=== PATIENT | female | born 1965 | race Caucasian/White ===

== ENCOUNTER 2016-09-16 13:53 | Inpatient (IN) | payer MEDICAID ==
--- NOTE | 2016-09-16 14:49 | ED ---
General Adult HPI - General Source: patient, RN notes reviewed Mode of arrival: ambulatory Limitations: no limitations <Steph Dickson - Last Filed: 09/16/16 16:21> <Gregory Dietrich - Last Filed: 09/16/16 16:33> - General Chief complaint: Fall Stated complaint: Fall/Left Flank Pain Time Seen by Provider: 09/16/16 14:43 - History of Present Illness Initial comments: 51-year-old female presents to the emergency Department chief complaint of left- sided chest pain. Patient states that this pain started yesterday after she fell hitting the left side of her ribs. Patient states there is a take a deep breath it hurts to cough. Patient states that she hasn't had any fever chills there is no head injury. Patient denies any other complaints at this time. Patient was concerned due to her symptoms so she thought that she should be evaluated. Patient denies any recent fever, chills, shortness of breath, chest pain, back pain, abdominal pain, nausea vomiting, numbness or tingling, dysuria or hematuria, constipation or diarrhea, headaches or visual changes, or any other current symptoms. (Steph Dickson) - Related Data Home Medications Medication Instructions Recorded Confirmed Latanoprost Ophth [Xalatan 0.005%] 1 drops BOTH EYES HS 09/16/16 09/16/16 Timolol 0.5% Ophth Soln [Timoptic 1 drop BOTH EYES DAILY 09/16/16 09/16/16 0.5% Ophth Soln] Allergies Allergy/AdvReac Type Severity Reaction Status Date / Time metronidazole [From Flagyl] Allergy Rash/Hives Verified 09/16/16 14:08 Review of Systems ROS Other: All systems not noted in ROS Statement are negative. <Steph Dickson - Last Filed: 09/16/16 16:21> ROS Other: All systems not noted in ROS Statement are negative. <Gregory Dietrich - Last Filed: 09/16/16 16:33> ROS Statement: Those systems with pertinent positive or pertinent negative responses have been documented in the HPI. Past Medical History Past Medical History: No Reported History History of Any Multi-Drug Resistant Organisms: None Reported Past Surgical History: No Surgical Hx Reported Past Psychological History: No Psychological Hx Reported Smoking Status: Current every day smoker Past Alcohol Use History: Occasional Past Drug Use History: None Reported <Steph Dickson - Last Filed: 09/16/16 16:21> General Exam Limitations: no limitations <Steph Dickson - Last Filed: 09/16/16 16:21> General appearance: alert, anxious, in distress Head exam: Present: atraumatic, normocephalic, normal inspection Eye exam: Present: normal appearance, PERRL, EOMI. Absent: scleral icterus, conjunctival injection, periorbital swelling ENT exam: Present: normal exam, mucous membranes moist Neck exam: Present: normal inspection. Absent: tenderness, meningismus, lymphadenopathy Respiratory exam: Present: normal lung sounds bilaterally. Absent: respiratory distress, wheezes, rales, rhonchi, stridor Cardiovascular Exam: Present: normal rhythm, tachycardia, normal heart sounds. Absent: systolic murmur, diastolic murmur, rubs, gallop, clicks GI/Abdominal exam: Present: soft, normal bowel sounds. Absent: distended, tenderness, guarding, rebound, rigid Extremities exam: Present: normal inspection, full ROM, normal capillary refill. Absent: tenderness, pedal edema, joint swelling, calf tenderness Back exam: Present: normal inspection Neurological exam: Present: alert, oriented X3, CN II-XII intact Psychiatric exam: Present: normal affect, normal mood Skin exam: Present: warm, dry, intact, normal color. Absent: rash <Gregory Dietrich - Last Filed: 09/16/16 16:33> - General Exam Comments Initial Comments: General: The patient is awake and alert, in no distress, and does not appear acutely ill. Eye: Pupils are equal, round and reactive to light, extra-ocular movements are intact; there is normal conjunctiva bilaterally. No signs of icterus. Ears, nose, mouth and throat: There are moist mucous membranes and no oral lesions. Neck: The neck is supple, there is no tenderness Cardiovascular: There is a regular rate and rhythm. No murmur, rub or gallop is appreciated. Tenderness over the left lateral chest wall Respiratory: Lungs are clear to auscultation, respirations are non-labored, breath sounds are equal. No wheezes, stridor, rales, or rhonchi. Gastrointestinal: Soft, non-distended, non-tender abdomen without masses or organomegaly noted. There is no rebound or guarding present. No CVA tenderness. Bowel sounds are unremarkable. Back: There is no tenderness to palpation in the midline. There is no obvious deformity. No rashes noted. Musculoskeletal: Normal ROM, no tenderness, There is no pedal edema. There is no calf tenderness or swelling. Sensation intact. Pulses equal bilaterally 2+. Neurological: CN II-XII intact, There are no obvious motor or sensory deficits. Coordination appears grossly intact. Speech is normal. Skin: Skin is warm and dry and no rashes or lesions are noted. Psychiatric: Cooperative, appropriate mood & affect, normal judgment. (Steph Dickson) Course <Steph Dickson - Last Filed: 09/16/16 16:21> <Gregory Dietrich - Last Filed: 09/16/16 16:33> Vital Signs 09/16/16 09/16/16 14:06 16:12 Temperature 98.6 F Pulse Rate 123 H 107 H Respiratory 18 18 Rate Blood Pressure 127/74 O2 Sat by Pulse 96 Oximetry - Reevaluation(s) Reevaluation #1: 09/16/16 16:33 good breathing with thoravent placement (Gregory Dietrich) Procedures - Chest Tube Insertion Consent Obtained: verbal consent Time Out Performed: Yes Side of Procedure: left Indication: Pneumothorax Placed on monitor/pulse oximetry: Yes Site Prep: Chloroprep Local Anesthesia: Lidocaine 1%, With Epi Insertion Site: Midaxillary, Other (2nd) Tube Size (Mohawk): Other (10) Returns: Air Sutured in Place: No (bandage) Dressing Applied: Tape Attached to Suction: Yes Type of Suction: Pleuravac Repeat X-ray Results: Lung Inflated Patient Tolerated Procedure: well Complications: Pain <Gregory Dietrich - Last Filed: 09/16/16 16:33> Medical Decision Making - Radiology Data Radiology results: report reviewed, image reviewed <Steph Dickson - Last Filed: 09/16/16 16:21> - Lab Data Result diagrams: 09/16/16 16:06 <Gregory Dietrich - Last Filed: 09/16/16 16:33> - Medical Decision Making 51-year-old female presents for left-sided rib pain after fall. Imaging was reviewed that does show a pneumothorax. This time Dr. Dietrich placed a thoravac. At this time there was successful placement. This and the patient will be admitted to Dr. Betsy Calhoun will be consult at. Patient this plan. (Steph Dickson) - Lab Data Lab Results 09/16/16 Range/Units 16:06 WBC 8.7 (3.8-10.6) k/uL RBC 4.02 (3.80-5.40) m/uL Hgb 13.5 (11.4-16.0) gm/dL Hct 39.9 (34.0-46.0) % MCV 99.1 (80.0-100.0) fL MCH 33.5 (25.0-35.0) pg MCHC 33.8 (31.0-37.0) g/dL RDW 13.4 (11.5-15.5) % Plt Count 215 (150-450) k/uL Neutrophils % 80 % Lymphocytes % 12 % Monocytes % 6 % Eosinophils % 0 % Basophils % 0 % Neutrophils # 6.9 (1.3-7.7) k/uL Lymphocytes # 1.1 (1.0-4.8) k/uL Monocytes # 0.5 (0-1.0) k/uL Eosinophils # 0.0 (0-0.7) k/uL Basophils # 0.0 (0-0.2) k/uL Critical Care Time Critical Care Time: Yes Total Critical Care Time: 31 <Gregory Dietrich - Last Filed: 09/16/16 16:33> Disposition Time of Disposition: 16:22 Decision Date: 09/16/16 Decision Time: 16:22 <Steph Dickson - Last Filed: 09/16/16 16:21> <Gregory Dietrich - Last Filed: 09/16/16 16:33> Clinical Impression: Fall, Contusion of rib on left side, Acute pneumothorax Disposition: ADMITTED IP TO THIS [facility] Condition: Stable Referrals: None,Stated [Primary Care Provider] - 1-2 days
--- NOTE | 2016-09-16 15:04 | XR ---
EXAMINATION TYPE: XR ribs LT w pa chest x-ray , 5 VIEWS DATE OF EXAM ORDERED: 09/16/2016 HISTORY: Pain. COMPARISON: None. FINDINGS: There is blunting of the left CP angle. I could not exclude a left effusion. There is a 20-25% by volume left sided apical pneumothorax. The lungs are clear. Heart size is upper limits of normal. No displaced rib fracture is seen. IMPRESSION: 1. 25% BY VOLUME, LEFT SIDED APICAL PNEUMOTHORAX. 2. SMALL LEFT-SIDED EFFUSION. 3. I DO NOT IDENTIFY A DISPLACED RIB FRACTURE.
[2016-09-16] MEDS ORDERED: HYDROmorphone 1 MG/ML 1 ML SYRINGE IVP STA ×2 (15:09→15:35)
[2016-09-16] MEDS ORDERED: IPRATROPIUM-ALBUTEROL 3 ML NEB INHALATION STA (15:34)
[2016-09-16] MEDS ORDERED: SODIUM CHLORIDE 0.9% 1,000 ML IV STA (15:36)
--- NOTE | 2016-09-16 16:09 | XR ---
EXAMINATION TYPE: XR chest 1V portable DATE OF EXAM: 09/16/2016 HISTORY: Pain. REFERENCE: Previous study of earlier today. FINDINGS: Again without is been placed in the right chest. There is near complete resolution of the p atient's left-sided pneumothorax. A tiny residual pneumothorax persists which is less than 10% by vol ume. There is a calcified granuloma in the right upper lobe. The lungs are otherwise clear. Pleural spaces are clear. Heart size is upper limits of normal. IMPRESSION: STATUS POST HEIMLICH VALVE REPLACEMENT WITH NEAR COMPLETE RESOLUTION OF THE PATIENT'S LEFT-SIDED PNEU MOTHORAX.
--- NOTE | 2016-09-16 16:19 | P.CNPUL ---
History of Present Illness Consult date: 09/16/16 Reason for consult: COPD, pneumothorax History of present illness: 1-year-old female patient, chronic smoker, known history of COPD, recurrent bronchitis, was having symptoms of bronchitis and some mild symptoms of COPD exacerbation over the past 2 days. She subsequently had a fall and her garage and she landed on her left chest and she developed significant left-sided chest pain increased shortness of breath. Overnight she decided not to come into the hospital. This morning her breathing was getting worse and she was having also increased congestions cough and wheezing. For that reason, the patient came into the emergency department and she was found to have a 15-20% pneumothorax in the left apex. No evidence of any rib fractures on the chest x-ray. She was quite bronchospastic and wheezy and short of breath and tachycardic. No signs of any tension pneumothorax and she was hemodynamically stable. Pulse ox was around 95% on room air. No hemoptysis. She was however a having excess amount of pain along her left chest at the site of the trauma. No chest wall deformity. I attended on this patient in the emergency department. Reviewed the chest x-ray. Discussed with Dr. Dietrich and we inserted a Thoravent with successful reexpansion of the left lung. Review of Systems All systems: negative Constitutional: Denies chills, Denies fever Eyes: denies blurred vision, denies pain Ears, nose, mouth and throat: Denies headache, Denies sore throat Cardiovascular: Reports chest pain, Reports decreased exercise tolerance, Reports shortness of breath Respiratory: Reports cough, Reports dyspnea, Reports respiratory infections, Reports wheezing Gastrointestinal: Denies abdominal pain, Denies diarrhea, Denies nausea, Denies vomiting Genitourinary: Denies dysuria, Denies hematuria Musculoskeletal: Denies myalgias Integumentary: Denies pruritus, Denies rash Neurological: Denies numbness, Denies weakness Psychiatric: Denies anxiety, Denies depression Endocrine: Denies fatigue, Denies weight change Past Medical History Past Medical History: No Reported History, COPD Additional Past Medical History / Comment(s): COPD, glaucoma History of Any Multi-Drug Resistant Organisms: None Reported Past Surgical History: No Surgical Hx Reported, Breast Surgery Additional Past Surgical History / Comment(s): Cosmetic bilateral breast implants Past Psychological History: No Psychological Hx Reported Smoking Status: Current every day smoker (Patient smokes one half pack of cigarettes a day and she is a [id number] smoker.) Past Alcohol Use History: Occasional Past Drug Use History: None Reported Medications and Allergies Home Medications Medication Instructions Recorded Confirmed Type Latanoprost Ophth [Xalatan 0.005%] 1 drops BOTH EYES HS 09/16/16 09/16/16 History Timolol 0.5% Ophth Soln [Timoptic 1 drop BOTH EYES DAILY 09/16/16 09/16/16 History 0.5% Ophth Soln] Allergies Allergy/AdvReac Type Severity Reaction Status Date / Time metronidazole [From Flagyl] Allergy Rash/Hives Verified 09/16/16 14:08 Physical Exam Vitals: Vital Signs Temp Pulse Resp BP Pulse Ox 09/16/16 14:06 98.6 F 123 H 18 127/74 96 Intake and Output 09/16/16 09/16/16 09/16/16 06:59 14:59 22:59 Other: Weight 63.503 kg Patient Weight 09/17/16 06:59 Weight 63.503 kg Head exam was generally normal. There was no scleral icterus or corneal arcus. Mucous membranes were moist.Neck was supple and without jugular venous distension, thyromegaly, or carotid bruits. Carotids were easily palpable bilaterally. There was no adenopathy. Lung sounds are diminished in the lung apex on the left compared to the right. There is scattered rhonchi and expiratory wheezes throughout the lung watknis bilaterally.Cardiac exam revealed the PMI to be normally situated and sized. The rhythm was regular and no extrasystoles were noted during several minutes of auscultation. The first and second heart sounds were normal and physiologic splitting of the second heart sound was noted. There were no murmurs, rubs, clicks, or gallops.Abdominal exam revealed normal bowel sounds. The abdomen was soft, non-tender, and without masses, organomegaly, or appreciable enlargement of the abdominal aorta.Examination of the extremities revealed easily palpable radial, femoral and pedal pulses. There was no cyanosis, clubbing or edema. Results - Diagnostic Findings Chest x-ray: image reviewed Assessment and Plan Plan: Assessment 1 traumatic left-sided pneumothorax 15-20% involving the left apex, status post successful insertion of a thoravent 2 left-sided chest wall pain, traumatic, rule out underlying pulmonary contusion 3 COPD exacerbation/symptoms of acute bronchitis 4 shortness of breath secondary to above 5 smoker 6 glaucoma Plan Start the patient on DuoNeb nebulized treatments around the clock. We'll put the patient on 40 mg of IV Solu Medrol every 6 hours. We'll put the patient a course of Zithromax 500 mg by mouth on a daily basis. Daily chest x-ray. Incentive spirometer. Dilaudid 0.5-1 mg every 4-6 hours for pain control. Subcu heparin for DVT prophylaxis. Nicotine patch. Smoking cessation counseling was done. We'll continue to follow. Blood work will be obtained.
[2016-09-16] MEDS ORDERED: NALOXONE 0.4 MG/ML 1 ML VIAL IV PRN (16:23)
[2016-09-16] MEDS ORDERED: ONDANSETRON 4 MG/2 ML VIAL IVP PRN (16:23)
[2016-09-16] MEDS ORDERED: HYDROmorphone 1 MG/ML 1 ML SYRINGE IV PRN (16:23)
[2016-09-16 16:29] LABS: Basophils % (A) 0 %; CH 33.1; CHCM 33.6; Eosinophils % (A) 0 %; HCT 39.9 % (34.0-46.0); HDW 2.22; HGB 13.5 gm/dL (11.4-16.0); Luc # (Auto) 0.12; Luc % (Auto) 1; Lymphocytes # (A) 1.1 k/uL (1.0-4.8); Lymphocytes % (A) 12 %; MCH 33.5 pg (25.0-35.0); MCHC 33.8 g/dL (31.0-37.0); MCV 99.1 fL (80.0-100.0); Mean Platelet Volume 7.7; Monocytes # (A) 0.5 k/uL (0-1.0); Monocytes % (A) 6 %; Neutrophils # (A) 6.9 k/uL (1.3-7.7); Neutrophils % (A) 80 %; RBC 4.02 m/uL (3.80-5.40); RDW 13.4 % (11.5-15.5); WBC 8.7 k/uL (3.8-10.6); WBC (Perox) 8.17
[2016-09-16] MEDS ORDERED: HYDROmorphone 1 MG/ML 1 ML SYRINGE IVP PRN (16:30)
[2016-09-16 16:33] LABS: ALT 39 U/L (9-52); AST 28 U/L (14-36); Alkaline Phosphatase 91 U/L (38-126); Anion Gap 9 mmol/L; Blood Urea Nitrogen 12 mg/dL (7-17); Calcium 9.2 mg/dL (8.4-10.2); Carbon Dioxide 27 mmol/L (22-30); Chloride 105 mmol/L (98-107); Glucose 98 mg/dL (74-99); Non-African American GFR(MDRD) >60 (>60 ml/min/1.73 sqM); Potassium 4.6 mmol/L (3.5-5.1); Sodium 141 mmol/L (137-145); Total Bilirubin 0.5 mg/dL (0.2-1.3); Total Protein 7.2 g/dL (6.3-8.2)
[2016-09-16 17:57] VITALS: BMI 23.3
[2016-09-16] MEDS: NICOTINE 21MG/24HR PATCH TRANSDERM SCH (18:10)
[2016-09-16] MEDS: SODIUM CHLORIDE 0.9% 1,000 ML IV SCH (18:10)
[2016-09-16] MEDS: methylPREDNISolone SOD SUCCI 40 MG/ML 1 ML VIAL IV SCH ×2 (18:14→22:55)
[2016-09-16] MEDS: AZITHROMYCIN 250 MG TAB PO SCH (18:14)
[2016-09-16] MEDS ORDERED: TEMAZEPAM 15 MG CAP PO PRN (18:42)
[2016-09-16] MEDS: HEPARIN SODIUM,PORCINE 5,000 UNIT/ML 1 ML VIAL SQ SCH (20:18)
[2016-09-16] MEDS: HYDROmorphone 1 MG/ML 1 ML SYRINGE IVP PRN (20:19)
[2016-09-16] MEDS: LATANOPROST 0.005% OPHTH DROPS 2.5 ML BTL BOTH EYES SCH (20:19)
[2016-09-16] MEDS: IPRATROPIUM-ALBUTEROL 3 ML NEB INHALATION SCH (20:42)
--- NOTE | 2016-09-16 21:07 | P.GSCN ---
History of Present Illness Consult date: 09/16/16 Reason for Consult: Left-sided pneumothorax status post fall History of present illness: This a 51-year-old female who is admitted to the hospital. Patient slipped in her garage yesterday. She states this floor was wet she slipped and struck a shelving unit in her garage. Dissected pain after the fall. She didn't feel well this morning and presented to the emergency room found have a 25% left pneumothorax. There are no evidence of rib fractures. Patient currently has a pneumo vent in place. Her pneumothorax has resolved. Review of Systems - Constitutional Reports as per HPI Past Medical History Past Medical History: No Reported History Additional Past Medical History / Comment(s): COPD, glaucoma History of Any Multi-Drug Resistant Organisms: None Reported Past Surgical History: No Surgical Hx Reported Additional Past Surgical History / Comment(s): Cosmetic bilateral breast implants Past Psychological History: No Psychological Hx Reported Smoking Status: Current every day smoker Past Alcohol Use History: Occasional Past Drug Use History: None Reported Medications and Allergies Home Medications Medication Instructions Recorded Confirmed Type Latanoprost Ophth [Xalatan 0.005%] 1 drops BOTH EYES HS 09/16/16 09/16/16 History Timolol 0.5% Ophth Soln [Timoptic 1 drop BOTH EYES DAILY 09/16/16 09/16/16 History 0.5% Ophth Soln] Allergies Allergy/AdvReac Type Severity Reaction Status Date / Time metronidazole [From Flagyl] Allergy Rash/Hives Verified 09/16/16 14:08 Surgical - Exam Vital Signs Temp Pulse Resp BP Pulse Ox 98.6 F 123 H 18 127/74 96 09/16/16 14:06 09/16/16 14:06 09/16/16 14:06 09/16/16 14:06 09/16/16 14:06 - General well developed, no distress - Eyes PERRL - ENT normal pinna - Neck no masses - Respiratory normal expansion - Cardiovascular Rhythm: regular - Abdomen Abdomen: soft, non tender Results - Labs 09/16/16 16:06 09/16/16 16:06 Diabetes panel 09/16/16 Range/Units 16:06 Sodium 141 (137-145) mmol/L Potassium 4.6 (3.5-5.1) mmol/L Chloride 105 (98-107) mmol/L Carbon Dioxide 27 (22-30) mmol/L BUN 12 (7-17) mg/dL Creatinine 0.75 (0.52-1.04) mg/dL Glucose 98 (74-99) mg/dL Calcium 9.2 (8.4-10.2) mg/dL AST 28 (14-36) U/L ALT 39 (9-52) U/L Alkaline Phosphatase 91 (38-126) U/L Total Protein 7.2 (6.3-8.2) g/dL Albumin 4.5 (3.5-5.0) g/dL Calcium panel 09/16/16 Range/Units 16:06 Calcium 9.2 (8.4-10.2) mg/dL Albumin 4.5 (3.5-5.0) g/dL Pituitary panel 09/16/16 Range/Units 16:06 Sodium 141 (137-145) mmol/L Potassium 4.6 (3.5-5.1) mmol/L Chloride 105 (98-107) mmol/L Carbon Dioxide 27 (22-30) mmol/L BUN 12 (7-17) mg/dL Creatinine 0.75 (0.52-1.04) mg/dL Glucose 98 (74-99) mg/dL Calcium 9.2 (8.4-10.2) mg/dL Adrenal panel 09/16/16 Range/Units 16:06 Sodium 141 (137-145) mmol/L Potassium 4.6 (3.5-5.1) mmol/L Chloride 105 (98-107) mmol/L Carbon Dioxide 27 (22-30) mmol/L BUN 12 (7-17) mg/dL Creatinine 0.75 (0.52-1.04) mg/dL Glucose 98 (74-99) mg/dL Calcium 9.2 (8.4-10.2) mg/dL Total Bilirubin 0.5 (0.2-1.3) mg/dL AST 28 (14-36) U/L ALT 39 (9-52) U/L Alkaline Phosphatase 91 (38-126) U/L Total Protein 7.2 (6.3-8.2) g/dL Albumin 4.5 (3.5-5.0) g/dL Assessment and Plan Plan: Status post left pneumothorax after fall. Patient is doing well. She'll have repeat x-rays perform the morning.
[2016-09-16] MEDS: HYDROcodone/APAP 5-325MG 1 EACH TAB PO PRN (22:56)
[2016-09-17] MEDS: HYDROmorphone 1 MG/ML 1 ML SYRINGE IVP PRN ×8 (00:36→23:32)
[2016-09-17] MEDS: methylPREDNISolone SOD SUCCI 40 MG/ML 1 ML VIAL IV SCH ×4 (05:14→23:32)
[2016-09-17] MEDS: HYDROcodone/APAP 5-325MG 1 EACH TAB PO PRN ×2 (05:14→21:35)
[2016-09-17] MEDS: SODIUM CHLORIDE 0.9% 1,000 ML IV SCH ×2 (05:14→16:04)
[2016-09-17] MEDS: PANTOPRAZOLE 40 MG TABLET PO SCH (06:42)
[2016-09-17] MEDS: IPRATROPIUM-ALBUTEROL 3 ML NEB INHALATION SCH ×4 (07:03→19:43)
[2016-09-17] MEDS: HEPARIN SODIUM,PORCINE 5,000 UNIT/ML 1 ML VIAL SQ SCH ×2 (07:33→21:35)
[2016-09-17] MEDS: TIMOLOL 0.5% OPHTH DROPS 5 ML BTL BOTH EYES SCH (07:33)
--- NOTE | 2016-09-17 08:47 | XR ---
EXAMINATION TYPE: XR chest 1V DATE OF EXAM: 09/17/2016 COMPARISON: Prior chest x-ray 09/16/2016 HISTORY: Pneumothorax TECHNIQUE: Single frontal view of the chest is obtained. FINDINGS: Left-sided thoracic pain is in place, small apical pneumothorax is present. Distal tip of the thoracic vent tubing courses caudally. No evident effusion. Retrocardiac density likely represent s basilar atelectasis. Correlate to exclude pneumonia. Heart size may be accentuated by rotation. The re are overlying cardiac leads. IMPRESSION: Small apical pneumothorax persists. Additional findings above.
--- NOTE | 2016-09-17 10:46 | HP ---
DATE OF ADMISSION: 09/16/16 CHIEF COMPLAINT: Left sided chest pain and shortness of breath. HISTORY OF PRESENT ILLNESS: This 57-year-old woman with a past medical history of multiple medical problems including COPD, glaucoma being followed by Dr. Calhoun in the outpatient setting apparently fell in the garage yesterday on the left side and the patient was complaining of pain and feeling of pain especially on deep breaths. The patient also had shortness of breath. The patient came to [facility] and was admitted to the hospital for further evaluation and treatment. Chest x-ray was done which showed rib x-ray was done and chest x-ray was done. Rib x-ray showed 24% pneumothorax, left sided small left sided pleural effusion and displaced fracture was not seen. The patient admitted to the hospital for further evaluation and treatment. There is no history of any fevers, rigors or chills. No history of any headache, loss of consciousness or seizures. valve was placed by Dr. Calhoun. Past medical history of COPD. History of glaucoma. Medications prior to admission are: Home medications are reviewed and include: 1. Timolol 5% ophthalmic solution. 2. Xalatan eye drops. ALLERGIES: FLAGYL. FAMILY HISTORY: No history of heart disease or strokes in the family. SOCIAL HISTORY: History of smoking. No history of alcohol intake. REVIEW OF SYSTEMS: HEENT: No diminished vision. No diminished hearing. Cardiovascular system: No angina or palpitations. Respiratory: As mentioned earlier. GI: Nausea or vomiting. : No dysuria. Nervous system: No numbness, weakness. Allergy/Immunology: No asthma or hayfever. Musculoskeletal: As mentioned earlier. Hematology/oncology: No history of anemia. Endocrine. No history of diabetes or hypothyroidism. Constitutional: As mentioned earlier. Dermatology: Negative. Rheumatology: Negative. Psychiatry: As mentioned earlier. PHYSICAL EXAMINATION: The patient is alert and oriented times three. Pulse 81. Blood pressure 108/87. Respiratory rate 16, temperature 98.2 degrees. Pulse ox 92% on 2 L. HEENT: Conjunctivae normal. NECK: No JVD. Cardiovascular: S1, S2 muffled. Respiratory: Breath sounds diminished at the bases. Scattered rhonchi and crackles. Abdomen is soft. Nontender. No mass palpable. Legs: No edema. No swelling. Nervous system: No focal deficits. SKIN: No ulcer, rash or bleeding. LABS: CBC within normal limits. ASSESSMENT: 1. Fall and left sided pneumothorax status post valve. 2. Left sided chest pain. 3. Chronic obstructive pulmonary disease. 4. Glaucoma. RECOMMENDATIONS AND DISCUSSION: In this 51 -year-old woman who presented with multiple complex medical issues, we will monitor the patient closely. Continue the current medications. Continue symptomatic treatment. Otherwise, at this time, I would recommend pain medications. Incentive spirometry. Closely follow with Dr. Calhoun. See orders for further details. Further recommendations to follow. MTDD
--- NOTE | 2016-09-17 12:08 | P.PN ---
Subjective 51-year-old female patient, chronic smoker, known history of COPD, recurrent bronchitis, was having symptoms of bronchitis and some mild symptoms of COPD exacerbation over the past 2 days. She subsequently had a fall and her garage and she landed on her left chest and she developed significant left-sided chest pain increased shortness of breath. Overnight she decided not to come into the hospital. This morning her breathing was getting worse and she was having also increased congestions cough and wheezing. For that reason, the patient came into the emergency department and she was found to have a 15-20% pneumothorax in the left apex. No evidence of any rib fractures on the chest x-ray. She was quite bronchospastic and wheezy and short of breath and tachycardic. No signs of any tension pneumothorax and she was hemodynamically stable. Pulse ox was around 95% on room air. No hemoptysis. She was however a having excess amount of pain along her left chest at the site of the trauma. No chest wall deformity. I attended on this patient in the emergency department. Reviewed the chest x-ray. Discussed with Dr. Dietrich and we inserted a Thoravent with successful reexpansion of the left lung. The patient is seen again today 09/17/2016 in follow-up on the selective care unit. She is awake and alert in no acute distress. She is breathing easier today as compared to yesterday. Her pain is well controlled. She is maintaining good O2 saturations in the mid 90s on room air. She's been afebrile. Hemodynamically stable. Her chest x-ray reveals a small apical pneumothorax on the left. There is no clear evidence of rib fractures however on auscultation posteriorly on the left chest there is cracking and friction noted. She does feel that in this area with a deep inhalation as well. She remains on bronchodilators, IV Solu-Medrol and empiric antibiotics in the form of azithromycin. Objective - Vital Signs Vital signs: Vital Signs Temp 97.4 F L 09/17/16 11:18 Pulse 84 09/17/16 11:25 Resp 16 09/17/16 11:21 BP 115/69 09/17/16 11:18 Pulse Ox 94 L 09/17/16 11:18 Intake & Output 09/16/16 09/17/16 09/17/16 18:59 06:59 18:59 Intake Total 930 125 Balance 930 125 Weight 63.503 kg Intake: IV 450 Sodium Chloride 0.9% 1, 450 000 ml @ 80 mls/hr IV . [id number] [facility] Rx#:[id number] Oral 480 125 Other: Voiding Method Toilet # Voids 1 - Exam Head exam was generally normal. There was no scleral icterus or corneal arcus. Mucous membranes were moist.Neck was supple and without jugular venous distension, thyromegaly, or carotid bruits. Carotids were easily palpable bilaterally. There was no adenopathy. Lung sounds are diminished in the lung apex on the left compared to the right. There is scattered rhonchi and expiratory wheezes throughout the lung watkins bilaterally.Cardiac exam revealed the PMI to be normally situated and sized. The rhythm was regular and no extrasystoles were noted during several minutes of auscultation. The first and second heart sounds were normal and physiologic splitting of the second heart sound was noted. There were no murmurs, rubs, clicks, or gallops.Abdominal exam revealed normal bowel sounds. The abdomen was soft, non-tender, and without masses, organomegaly, or appreciable enlargement of the abdominal aorta.Examination of the extremities revealed easily palpable radial, femoral and pedal pulses. There was no cyanosis, clubbing or edema. - Labs CBC & Chem 7: 09/16/16 16:06 09/16/16 16:06 Assessment and Plan Plan: Assessment: 1 traumatic left-sided pneumothorax 15-20% involving the left apex, status post successful insertion of a thoravent, small minimal apical thorax remains. 2 left-sided chest wall pain, traumatic, rule out underlying pulmonary contusion , suspect left posterior fractured rib. 3 COPD exacerbation/symptoms of acute bronchitis 4 shortness of breath secondary to above 5 smoker 6 glaucoma Plan: The patient was seen and evaluated by Dr. Calhoun. Her chest x-ray was reviewed. There is still a small apical pneumothorax noted on the left. Dura- Vent remains in place. We'll continue with her pain medications. We'll keep her another 24 hours. We'll continue treating her COPD exacerbation with bronchodilators, IV Solu-Medrol and antibiotics. We will increase her activity as tolerated. We'll offer a NicoDerm patch. She'll be educated regarding the incentive spirometer and cough and deep breathing exercises as tolerated. We' ll continue to follow.
--- NOTE | 2016-09-17 15:00 | PN ---
DATE OF SERVICE: 09/17/16 This 51-year-old woman was admitted with left sided pneumothorax is being closely monitored. No chest pain. No palpitations. No fever. PHYSICAL EXAMINATION: The patient is alert and oriented times three. Pulse 73. Blood pressure 115/69. Respiratory rate 16. Temperature 97.4. Pulse ox 94% on room air. HEENT: Conjunctivae normal. NECK: No JVD. Cardiovascular: S1, S2 muffled. Respiratory: Breath sounds diminished at the bases. A few scattered rhonchi and crackles. Abdomen soft. Nontender. Legs, no edema. No swelling. Nervous system: No focal deficits. Labs: CBC, BMP within normal limits. ASSESSMENT: 1. Fall and left sided pneumothorax status post Heimlich valve. 2. Left sided chest pain. 3. Chronic obstructive pulmonary disease. 4. Glaucoma. RECOMMENDATIONS AND DISCUSSION: Recommend to continue the current medications. Continue with monitoring and symptomatic treatment. Otherwise, closely follow with Dr. Calhoun. Pain medications. Follow-up x-rays. Further recommendations to follow. SANDRO
[2016-09-17] MEDS: NICOTINE 21MG/24HR PATCH TRANSDERM SCH (15:51)
[2016-09-17] MEDS: AZITHROMYCIN 250 MG TAB PO SCH (15:51)
--- NOTE | 2016-09-17 17:37 | P.PN ---
Progress Note - Text Resting comfortably in her bed. She has no complaints. She has some minimal chest pain on the left side. Her repeat chest x-ray shows a small apical pneumothorax. On exam her vitals are stable. Abdomen soft. Small residual apical pneumothorax. Patient will continue to have her thoracic vent in place. She'll be discharged home per pulmonary.
[2016-09-17] MEDS: LATANOPROST 0.005% OPHTH DROPS 2.5 ML BTL BOTH EYES SCH (21:35)
[2016-09-18] MEDS: methylPREDNISolone SOD SUCCI 40 MG/ML 1 ML VIAL IV SCH ×4 (05:02→23:53)
[2016-09-18] MEDS: HYDROmorphone 1 MG/ML 1 ML SYRINGE IVP PRN ×6 (05:02→22:02)
[2016-09-18] MEDS: SODIUM CHLORIDE 0.9% 1,000 ML IV SCH (06:37)
[2016-09-18] MEDS: HYDROcodone/APAP 5-325MG 1 EACH TAB PO PRN ×3 (06:38→23:53)
[2016-09-18] MEDS: PANTOPRAZOLE 40 MG TABLET PO SCH (06:38)
[2016-09-18] MEDS: IPRATROPIUM-ALBUTEROL 3 ML NEB INHALATION SCH ×4 (07:48→19:31)
--- NOTE | 2016-09-18 08:01 | XR ---
EXAMINATION TYPE: XR chest 1V DATE OF EXAM: 09/18/2016 HISTORY: ptx. REFERENCE: Previous study dated 09/17/2016. FINDINGS: There is a Heimlich valve in place on the left. No definite pneumothorax is seen. Heart siz e is upper limits of normal. There is a left-sided effusion. There is left basilar airspace disease. Overall aeration of the left lung may have improved slightly. IMPRESSION: 1. APPARENT RESOLUTION OF THE PATIENT'S LEFT APICAL PNEUMOTHORAX. 2. IMPROVED AERATION, LEFT LUNG BASE. 3. SMALL LEFT EFFUSION.
[2016-09-18] MEDS: TIMOLOL 0.5% OPHTH DROPS 5 ML BTL BOTH EYES SCH (09:30)
[2016-09-18] MEDS: HEPARIN SODIUM,PORCINE 5,000 UNIT/ML 1 ML VIAL SQ SCH ×2 (09:31→21:42)
[2016-09-18] MEDS ORDERED: DOCUSATE 100 MG CAP PO PRN (13:01)
[2016-09-18] MEDS ORDERED: RX INFO: IV CONTRAST WAS GIVEN 1 EACH MISC MISCELLANE PRN (13:01)
--- NOTE | 2016-09-18 14:03 | P.PN ---
Subjective 51-year-old female patient, chronic smoker, known history of COPD, recurrent bronchitis, was having symptoms of bronchitis and some mild symptoms of COPD exacerbation over the past 2 days. She subsequently had a fall and her garage and she landed on her left chest and she developed significant left-sided chest pain increased shortness of breath. Overnight she decided not to come into the hospital. This morning her breathing was getting worse and she was having also increased congestions cough and wheezing. For that reason, the patient came into the emergency department and she was found to have a 15-20% pneumothorax in the left apex. No evidence of any rib fractures on the chest x-ray. She was quite bronchospastic and wheezy and short of breath and tachycardic. No signs of any tension pneumothorax and she was hemodynamically stable. Pulse ox was around 95% on room air. No hemoptysis. She was however a having excess amount of pain along her left chest at the site of the trauma. No chest wall deformity. I attended on this patient in the emergency department. Reviewed the chest x-ray. Discussed with Dr. Dietrich and we inserted a Thoravent with successful reexpansion of the left lung. The patient is seen again today 09/17/2016 in follow-up on the selective care unit. She is awake and alert in no acute distress. She is breathing easier today as compared to yesterday. Her pain is well controlled. She is maintaining good O2 saturations in the mid 90s on room air. She's been afebrile. Hemodynamically stable. Her chest x-ray reveals a small apical pneumothorax on the left. There is no clear evidence of rib fractures however on auscultation posteriorly on the left chest there is cracking and friction noted. She does feel that in this area with a deep inhalation as well. She remains on bronchodilators, IV Solu-Medrol and empiric antibiotics in the form of azithromycin. On 09/18/2016, I'm seeing this patient in follow-up. She is still having significant amount of pain along the left chest wall area. There is a click that can be appreciated upon auscultation or generating from the left posterior chest area. I suspect there is a left fracture probably a few. The patient is still requiring a lot of IV Dilaudid for pain control. She has a congested cough. Unfortunately she is unable to bring up the sputum due to the ongoing pain that she's been experiencing. She is less short of breath compared to yesterday. The chest tube is still in place. The chest x-ray from today showed adequate patient of the lungs without evidence of any pneumothorax and there is improved aeration of the lungs bilaterally. The patient is pulling approximately 750 I incentive spirometer. She is still very much concerned and she is very much concerned about an underlying pneumonia in addition. She is on oral Zithromax for now. Objective - Vital Signs Vital signs: Vital Signs Temp 97.0 F L 09/18/16 12:00 Pulse 73 09/18/16 12:00 Resp 16 09/18/16 12:00 BP 125/79 09/18/16 12:00 Pulse Ox 98 09/18/16 12:00 Intake & Output 09/17/16 09/18/16 09/18/16 18:59 06:59 18:59 Intake Total 365 560 520 Balance 365 560 520 Weight 67.2 kg Intake: IV 560 240 Sodium Chloride 0.9% 1, 560 240 000 ml @ 80 mls/hr IV . [id number] [facility] Rx#:[id number] Oral 365 280 Other: Voiding Method Toilet Toilet # Voids 1 - Exam Head exam was generally normal. There was no scleral icterus or corneal arcus. Mucous membranes were moist.Neck was supple and without jugular venous distension, thyromegaly, or carotid bruits. Carotids were easily palpable bilaterally. There was no adenopathy. Lung sounds are diminished in the lung apex on the left compared to the right. There is scattered rhonchi and expiratory wheezes throughout the lung watkins bilaterally.Cardiac exam revealed the PMI to be normally situated and sized. The rhythm was regular and no extrasystoles were noted during several minutes of auscultation. The first and second heart sounds were normal and physiologic splitting of the second heart sound was noted. There were no murmurs, rubs, clicks, or gallops.Abdominal exam revealed normal bowel sounds. The abdomen was soft, non-tender, and without masses, organomegaly, or appreciable enlargement of the abdominal aorta.Examination of the extremities revealed easily palpable radial, femoral and pedal pulses. There was no cyanosis, clubbing or edema. - Labs CBC & Chem 7: 09/16/16 16:06 09/16/16 16:06 Assessment and Plan Plan: Assessment 1 traumatic left-sided pneumothorax 15-20% involving the left apex, status post successful insertion of a thoravent, the patient had a successful expansion of the left lung and the tube will be capped. 2 left-sided chest wall pain, traumatic, rule out underlying pulmonary contusion 3 COPD exacerbation/symptoms of acute bronchitis 4 shortness of breath secondary to above 5 smoker 6 glaucoma Plan Proceed with a CAT scan of the chest looking for any rib fracture or pulmonary contusion. We'll also evaluate the extent of emphysema by the computed tomography scan images. We will cap the thoravent. Will possibly remove the tube in a.m. Dilaudid for pain control. Incentive spirometer. Oral Zithromax. Bronchodilators. Systemic steroids. Nicotine patches. We'll follow. Patient is ambulating.
[2016-09-18] MEDS: ALPRAZolam 0.5 MG TAB PO PRN (14:20)
[2016-09-18 14:33] LABS: Basophils % (A) 0 %; CH 33.2; CHCM 33.2; Eosinophils % (A) 0 %; HCT 39.1 % (34.0-46.0); HDW 2.21; Luc # (Auto) 0.06; Luc % (Auto) 0; Lymphocytes # (A) 0.5 k/uL (1.0-4.8); Lymphocytes % (A) 3 %; MCH 33.3 pg (25.0-35.0); MCHC 33.2 g/dL (31.0-37.0); MCV 100.3 fL (80.0-100.0); Monocytes # (A) 0.5 k/uL (0-1.0); Monocytes % (A) 3 %; Neutrophils # (A) 13.6 k/uL (1.3-7.7); Neutrophils % (A) 93 %; RDW 13.3 % (11.5-15.5); WBC 14.7 k/uL (3.8-10.6)
[2016-09-18 14:44] LABS: ALT 33 U/L (9-52); AST 20 U/L (14-36); Alkaline Phosphatase 66 U/L (38-126); Anion Gap 9 mmol/L; Blood Urea Nitrogen 11 mg/dL (7-17); Calcium 9.5 mg/dL (8.4-10.2); Carbon Dioxide 27 mmol/L (22-30); Chloride 103 mmol/L (98-107); Glucose 99 mg/dL (74-99); Non-African American GFR(MDRD) >60 (>60 ml/min/1.73 sqM); Potassium 4.4 mmol/L (3.5-5.1); Sodium 139 mmol/L (137-145); Total Bilirubin 0.3 mg/dL (0.2-1.3); Total Protein 6.7 g/dL (6.3-8.2)
[2016-09-18] MEDS: guaiFENesin-DM 600/30MG 1 EACH TAB.ER.12H PO SCH ×2 (16:08→21:42)
--- NOTE | 2016-09-18 16:12 | CT ---
EXAMINATION TYPE: CT chest w con DATE OF EXAM: 09/18/2016 COMPARISON: NONE HISTORY: Pneumothorax and broken ribs. CT DLP: 276.1 mGycm Automated exposure control for dose reduction was used. CONTRAST: CT scan of the chest is performed with IV Contrast, patient injected with 90 mL of Omnipaque 300. FINDINGS: There are undisplaced fractures of the left seventh eighth and ninth ribs posteriorly. Ther e is a comminuted, mildly displaced fracture of the left sixth rib. There is a Heimlich valve in place on the left. There is no evidence of pneumothorax. There is subcut aneous emphysema over the anterior chest on the left. There are patchy groundglass opacities present bilaterally. This may represent pulmonary contusion is thinning of the age of the trauma. There is dense consolidation in the left lower lobe. There is evidence of old granulomatous disease within the lungs. There is atelectasis at both lung ba ses, greater on the left than the right containing punctate calcifications related to old granulomato us disease. There is no significant axillary, internal mammary, mediastinal or left hilar adenopathy. There is a 1.2 cm lymph node in the right hilum. There are bilateral breast implants in place. Visualized portions of the upper abdomen are unremarkable. There is minimal hypertrophic spondylosis within the spine. IMPRESSION: 1. Fractures of the left posterior sixth, seventh, eighth and ninth ribs. The sixth rib is displaced. 2. Patchy groundglass opacity present bilaterally. This may relate to pulmonary hemorrhage. Alveoliti s is also a possibility. 3. Evidence of old granulomatous disease.
[2016-09-18] MEDS: AZITHROMYCIN 250 MG TAB PO SCH (17:33)
[2016-09-18] MEDS: NICOTINE 21MG/24HR PATCH TRANSDERM SCH (17:33)
--- NOTE | 2016-09-18 17:43 | PN ---
DATE OF SERVICE: 09/18/2016 This 51-year-old woman was admitted pneumothorax is being closely monitored. Dr. Calhoun is recommending CT scan of the chest. No chest pain. No palpitations. No fever. On exam, alert and oriented x3. Pulse 73, blood pressure 125/79, respiratory rate 16, temperature 97 degrees. HEENT: Conjunctive normal. NECK: No jugular venous distention. CARDIOVASCULAR: S1, S2 muffled. RESPIRATORY SYSTEM: Breath sounds diminished at the bases. A few scattered rhonchi. ABDOMEN: Soft. NERVOUS SYSTEM: No focal deficit. Heimlich valve is present. LABS: WBC 14.7. ASSESSMENT: 1. Fall and left-sided pneumothorax, status post Heimlich valve. 2. Left-sided chest pain. 3. Chronic obstructive pulmonary disease. 4. Glaucoma. 5. Increased white count. RECOMMENDATIONS AND DISCUSSION: I recommend to continue current medications, continue with symptomatic treatment. Closely follow with Dr. Calhoun. CT scan. Incentive spirometry. Bronchodilators. Further recommendations to follow. [facility]
[2016-09-18] MEDS: LATANOPROST 0.005% OPHTH DROPS 2.5 ML BTL BOTH EYES SCH (21:42)
[2016-09-19] MEDS: HYDROmorphone 1 MG/ML 1 ML SYRINGE IVP PRN ×8 (01:02→23:15)
[2016-09-19] MEDS: methylPREDNISolone SOD SUCCI 40 MG/ML 1 ML VIAL IV SCH ×4 (07:00→23:15)
[2016-09-19] MEDS: PANTOPRAZOLE 40 MG TABLET PO SCH (07:03)
[2016-09-19] MEDS: guaiFENesin-DM 600/30MG 1 EACH TAB.ER.12H PO SCH ×2 (07:47→19:55)
[2016-09-19] MEDS: TIMOLOL 0.5% OPHTH DROPS 5 ML BTL BOTH EYES SCH (07:48)
[2016-09-19] MEDS: HEPARIN SODIUM,PORCINE 5,000 UNIT/ML 1 ML VIAL SQ SCH ×2 (07:49→19:56)
[2016-09-19] MEDS: HYDROcodone/APAP 5-325MG 1 EACH TAB PO PRN ×3 (07:57→19:55)
[2016-09-19] MEDS: IPRATROPIUM-ALBUTEROL 3 ML NEB INHALATION SCH ×4 (08:40→19:28)
--- NOTE | 2016-09-19 08:45 | XR ---
EXAMINATION TYPE: XR chest 1V DATE OF EXAM: 09/19/2016 COMPARISON: Prior chest x-ray and chest CT 09/18/2016 HISTORY: Chest tube TECHNIQUE: Single frontal view of the chest is obtained. FINDINGS: Findings are similar to prior exam. Thoracic vent is present with tubing coursing inferior ly. Some parenchymal density suspected in left upper lobe somewhat obscured by overlying dressing. No sizable pneumothorax. Retrocardiac density is present. IMPRESSION: Left lower lobe atelectasis, correlate to exclude pneumonia. No sizable pneumothorax wit h chest tube in place as described.
[2016-09-19] MEDS: DOCUSATE 100 MG CAP PO SCH ×2 (12:41→19:55)
[2016-09-19] MEDS: POLYETHYLENE GLYCOL 3350 17 GM POWD.PACK PO SCH (12:41)
--- NOTE | 2016-09-19 13:18 | P.PN ---
Subjective 51-year-old female patient, chronic smoker, known history of COPD, recurrent bronchitis, was having symptoms of bronchitis and some mild symptoms of COPD exacerbation over the past 2 days. She subsequently had a fall and her garage and she landed on her left chest and she developed significant left-sided chest pain increased shortness of breath. Overnight she decided not to come into the hospital. This morning her breathing was getting worse and she was having also increased congestions cough and wheezing. For that reason, the patient came into the emergency department and she was found to have a 15-20% pneumothorax in the left apex. No evidence of any rib fractures on the chest x-ray. She was quite bronchospastic and wheezy and short of breath and tachycardic. No signs of any tension pneumothorax and she was hemodynamically stable. Pulse ox was around 95% on room air. No hemoptysis. She was however a having excess amount of pain along her left chest at the site of the trauma. No chest wall deformity. I attended on this patient in the emergency department. Reviewed the chest x-ray. Discussed with Dr. Dietrich and we inserted a Thoravent with successful reexpansion of the left lung. The patient is seen again today 09/17/2016 in follow-up on the selective care unit. She is awake and alert in no acute distress. She is breathing easier today as compared to yesterday. Her pain is well controlled. She is maintaining good O2 saturations in the mid 90s on room air. She's been afebrile. Hemodynamically stable. Her chest x-ray reveals a small apical pneumothorax on the left. There is no clear evidence of rib fractures however on auscultation posteriorly on the left chest there is cracking and friction noted. She does feel that in this area with a deep inhalation as well. She remains on bronchodilators, IV Solu-Medrol and empiric antibiotics in the form of azithromycin. On 09/18/2016, I'm seeing this patient in follow-up. She is still having significant amount of pain along the left chest wall area. There is a click that can be appreciated upon auscultation or generating from the left posterior chest area. I suspect there is a left fracture probably a few. The patient is still requiring a lot of IV Dilaudid for pain control. She has a congested cough. Unfortunately she is unable to bring up the sputum due to the ongoing pain that she's been experiencing. She is less short of breath compared to yesterday. The chest tube is still in place. The chest x-ray from today showed adequate patient of the lungs without evidence of any pneumothorax and there is improved aeration of the lungs bilaterally. The patient is pulling approximately 750 I incentive spirometer. She is still very much concerned and she is very much concerned about an underlying pneumonia in addition. She is on oral Zithromax for now. The patient is seen again today 09/19/2016 in follow-up on the selective care unit. She is awake and alert in no acute distress. She states she is breathing easier today as compared to yesterday. Her pain is better controlled. She still has discomfort on deep inhalation. She is pulling approximately 1000 mls on the incentive spirometer. Her chest x-ray continues to show atelectatic changes in the left lung base. No significant pneumothorax. ThoraVent remains in place. She has been up ambulating in the hallway without distress. Maintaining taking good O2 saturations in the 90s on room air. Afebrile. Objective - Vital Signs Vital signs: Vital Signs Temp 98.0 F 09/19/16 11:56 Pulse 76 09/19/16 12:58 Resp 18 09/19/16 11:56 BP 122/80 09/19/16 11:56 Pulse Ox 93 L 09/19/16 11:56 Intake & Output 09/18/16 09/19/16 09/19/16 18:59 06:59 18:59 Intake Total 940 600 Balance 940 600 Weight 67.5 kg Intake: IV 480 Sodium Chloride 0.9% 1, 480 000 ml @ 80 mls/hr IV . [id number] [facility] Rx#:[id number] Oral 460 600 Other: Voiding Method Toilet Toilet Toilet # Voids 2 2 # Bowel Movements 0 - Exam Head exam was generally normal. There was no scleral icterus or corneal arcus. Mucous membranes were moist.Neck was supple and without jugular venous distension, thyromegaly, or carotid bruits. Carotids were easily palpable bilaterally. There was no adenopathy. Lung sounds are diminished in the lung apex on the left compared to the right. There is scattered rhonchi and expiratory wheezes throughout the lung watkins bilaterally.Cardiac exam revealed the PMI to be normally situated and sized. The rhythm was regular and no extrasystoles were noted during several minutes of auscultation. The first and second heart sounds were normal and physiologic splitting of the second heart sound was noted. There were no murmurs, rubs, clicks, or gallops.Abdominal exam revealed normal bowel sounds. The abdomen was soft, non-tender, and without masses, organomegaly, or appreciable enlargement of the abdominal aorta.Examination of the extremities revealed easily palpable radial, femoral and pedal pulses. There was no cyanosis, clubbing or edema. - Labs CBC & Chem 7: 09/18/16 14:07 09/18/16 14:07 Labs: Abnormal Lab Results - Last 24 Hours (Table) 09/18/16 Range/Units 14:07 WBC 14.7 H (3.8-10.6) k/uL MCV 100.3 H (80.0-100.0) fL Neutrophils # 13.6 H (1.3-7.7) k/uL Lymphocytes # 0.5 L (1.0-4.8) k/uL Assessment and Plan Plan: Assessment: 1 traumatic left-sided pneumothorax 15-20% involving the left apex, status post successful insertion of a thoravent, small minimal apical thorax remains. 2 left-sided chest wall pain, traumatic, rule out underlying pulmonary contusion , suspect left posterior fractured rib. 3 COPD exacerbation/symptoms of acute bronchitis 4 shortness of breath secondary to above 5 smoker 6 glaucoma Plan: The patient was seen and evaluated by Dr. Musa. Her chest x-ray was reviewed. No sizable pneumothorax. We'll remove the Thoravent today. We'll continue with her pain medications. We'll continue treating her COPD exacerbation with bronchodilators, IV Solu-Medrol and antibiotics. We will increase her activity as tolerated. We'll continue a NicoDerm patch. She is again educated regarding the importance of complete smoking cessation. She is encouraged regarding the incentive spirometer and cough and deep breathing exercises as tolerated. We'll continue to follow.
[2016-09-19] MEDS: NICOTINE 21MG/24HR PATCH TRANSDERM SCH (17:08)
[2016-09-19] MEDS: AZITHROMYCIN 250 MG TAB PO SCH (17:09)
[2016-09-19] MEDS: ACETYLCYSTEINE 800 MG/4 ML VIAL INHALATION SCH (19:28)
[2016-09-19] MEDS: LEVOFLOXACIN 750MG-D5W PMX 750 MG in DEXTROSE/WATER 1 150ML.BAG IVPB SCH (19:54)
[2016-09-19] MEDS: LATANOPROST 0.005% OPHTH DROPS 2.5 ML BTL BOTH EYES SCH (19:56)
[2016-09-19] MEDS: PIPERACILLIN-TAZOBACTAM 3.375 GM in DEXTROSE/WATER 1 50ML.BAG IVPB SCH ×2 (21:26→23:14)
[2016-09-20] MEDS: HYDROcodone/APAP 5-325MG 1 EACH TAB PO PRN ×5 (01:52→20:44)
[2016-09-20] MEDS: HYDROmorphone 1 MG/ML 1 ML SYRINGE IVP PRN ×8 (02:01→23:41)
[2016-09-20 06:31] LABS: Basophils % (A) 0 %; CH 33.2; CHCM 32.8; Eosinophils % (A) 0 %; HCT 39.5 % (34.0-46.0); HDW 2.18; HGB 12.9 gm/dL (11.4-16.0); Luc # (Auto) 0.14; Luc % (Auto) 1; Lymphocytes # (A) 0.8 k/uL (1.0-4.8); Lymphocytes % (A) 7 %; MCH 33.1 pg (25.0-35.0); MCHC 32.5 g/dL (31.0-37.0); MCV 101.8 fL (80.0-100.0); Macrocytosis Slight; Mean Platelet Volume 7.7; Monocytes # (A) 0.6 k/uL (0-1.0); Monocytes % (A) 5 %; Neutrophils # (A) 10.2 k/uL (1.3-7.7); Neutrophils % (A) 87 %; RBC 3.88 m/uL (3.80-5.40); RDW 13.3 % (11.5-15.5); WBC 11.8 k/uL (3.8-10.6); WBC (Perox) 11.86
[2016-09-20 06:53] LABS: Anion Gap 10 mmol/L; Blood Urea Nitrogen 15 mg/dL (7-17); Calcium 9.1 mg/dL (8.4-10.2); Carbon Dioxide 26 mmol/L (22-30); Chloride 101 mmol/L (98-107); Glucose 119 mg/dL (74-99); Non-African American GFR(MDRD) >60 (>60 ml/min/1.73 sqM); Potassium 4.8 mmol/L (3.5-5.1); Sodium 137 mmol/L (137-145)
[2016-09-20] MEDS: PANTOPRAZOLE 40 MG TABLET PO SCH (06:53)
[2016-09-20] MEDS: methylPREDNISolone SOD SUCCI 40 MG/ML 1 ML VIAL IV SCH ×4 (06:53→23:41)
[2016-09-20] MEDS: DOCUSATE 100 MG CAP PO SCH ×2 (08:04→19:49)
[2016-09-20] MEDS: POLYETHYLENE GLYCOL 3350 17 GM POWD.PACK PO SCH (08:04)
[2016-09-20] MEDS: PIPERACILLIN-TAZOBACTAM 3.375 GM in DEXTROSE/WATER 1 50ML.BAG IVPB SCH ×3 (08:04→23:40)
[2016-09-20] MEDS: HEPARIN SODIUM,PORCINE 5,000 UNIT/ML 1 ML VIAL SQ SCH ×2 (08:05→19:49)
[2016-09-20] MEDS: TIMOLOL 0.5% OPHTH DROPS 5 ML BTL BOTH EYES SCH (08:06)
[2016-09-20] MEDS: guaiFENesin-DM 600/30MG 1 EACH TAB.ER.12H PO SCH ×2 (08:06→19:49)
[2016-09-20] MEDS ORDERED: BISACODYL 10 MG SUPP RECTAL STA (08:08)
[2016-09-20] MEDS: IPRATROPIUM-ALBUTEROL 3 ML NEB INHALATION SCH ×4 (08:11→20:24)
[2016-09-20] MEDS: ACETYLCYSTEINE 800 MG/4 ML VIAL INHALATION SCH ×3 (08:12→20:25)
--- NOTE | 2016-09-20 08:13 | PN ---
DATE OF SERVICE: 09/19/16 This 51-year-old woman was admitted with pneumothorax, also had possible pneumonia too also. The patient is being closely monitored. CT scan and chest x-ray results were reviewed. No palpitations. No fever. Chest pain has been complained of. PHYSICAL EXAMINATION: On exam, pulse 87. Blood pressure 122/80. Respiratory rate 18. Temperature 98 degrees. Pulse ox 93% on 2 L. HEENT: Conjunctivae normal. NECK: No JVD. Cardiovascular: S1, S2. Respiratory: Breath sounds diminished at the bases. A few scattered rhonchi and no crackles. Abdomen soft. Nontender. Legs: No edema. No swelling. Nervous system: No focal deficits. LABS: WBC 14.7. ASSESSMENT: 1. Fall and left sided pneumothorax, status post Heimlich valve. 2. Possible bronchopneumonia. 3. Left sided chest pain. 4. Multiple rib fractures on the left. 5. Chronic obstructive pulmonary disease. 6. Glaucoma. 7. Increased WBC. RECOMMENDATIONS AND DISCUSSION: Continue the current medications, continue with symptomatic treatment. Otherwise, at this time, we will monitor the patient closely. Pain medications and closely follow with Dr. Musa and Dr. Calhoun. CT scan noted. Further recommendations to follow. [facility]
--- NOTE | 2016-09-20 10:43 | P.PN ---
Subjective Principal diagnosis: Left sided pneumothorax and left sided pneumonia, and multiple rib fractures. 51-year-old female patient, chronic smoker, known history of COPD, recurrent bronchitis, was having symptoms of bronchitis and some mild symptoms of COPD exacerbation over the past 2 days. She subsequently had a fall and her garage and she landed on her left chest and she developed significant left-sided chest pain increased shortness of breath. Overnight she decided not to come into the hospital. This morning her breathing was getting worse and she was having also increased congestions cough and wheezing. For that reason, the patient came into the emergency department and she was found to have a 15-20% pneumothorax in the left apex. No evidence of any rib fractures on the chest x-ray. She was quite bronchospastic and wheezy and short of breath and tachycardic. No signs of any tension pneumothorax and she was hemodynamically stable. Pulse ox was around 95% on room air. No hemoptysis. She was however a having excess amount of pain along her left chest at the site of the trauma. No chest wall deformity. I attended on this patient in the emergency department. Reviewed the chest x-ray. Discussed with Dr. Dietrich and we inserted a Thoravent with successful reexpansion of the left lung. The patient is seen again today 09/17/2016 in follow-up on the selective care unit. She is awake and alert in no acute distress. She is breathing easier today as compared to yesterday. Her pain is well controlled. She is maintaining good O2 saturations in the mid 90s on room air. She's been afebrile. Hemodynamically stable. Her chest x-ray reveals a small apical pneumothorax on the left. There is no clear evidence of rib fractures however on auscultation posteriorly on the left chest there is cracking and friction noted. She does feel that in this area with a deep inhalation as well. She remains on bronchodilators, IV Solu-Medrol and empiric antibiotics in the form of azithromycin. On 09/18/2016, I'm seeing this patient in follow-up. She is still having significant amount of pain along the left chest wall area. There is a click that can be appreciated upon auscultation or generating from the left posterior chest area. I suspect there is a left fracture probably a few. The patient is still requiring a lot of IV Dilaudid for pain control. She has a congested cough. Unfortunately she is unable to bring up the sputum due to the ongoing pain that she's been experiencing. She is less short of breath compared to yesterday. The chest tube is still in place. The chest x-ray from today showed adequate patient of the lungs without evidence of any pneumothorax and there is improved aeration of the lungs bilaterally. The patient is pulling approximately 750 I incentive spirometer. She is still very much concerned and she is very much concerned about an underlying pneumonia in addition. She is on oral Zithromax for now. The patient is seen again today 09/19/2016 in follow-up on the selective care unit. She is awake and alert in no acute distress. She states she is breathing easier today as compared to yesterday. Her pain is better controlled. She still has discomfort on deep inhalation. She is pulling approximately 1000 mls on the incentive spirometer. Her chest x-ray continues to show atelectatic changes in the left lung base. No significant pneumothorax. ThoraVent remains in place. She has been up ambulating in the hallway without distress. Maintaining taking good O2 saturations in the 90s on room air. Afebrile. Patient was seen today on 09/20/2016, seems to be doing a bit better compared to yesterday. Her thoravent has been removed yesterday. Patient continues to have some cough, but unable to clear her sputum. Yesterday antibiotics were changed and I had a chance to review the CT of the chest as well as the x-rays with the patient and her . Today there is definite improvement, pain seems to be fairly well controlled, and her lungs even sound better compared to how they sounded yesterday. White count seems to be coming down. Chest x-ray was ordered to be done in a.m. Objective - Vital Signs Vital signs: Vital Signs Temp 98.1 F 09/20/16 08:25 Pulse 74 09/20/16 08:25 Resp 18 09/20/16 08:25 BP 141/89 09/20/16 08:25 Pulse Ox 95 09/20/16 08:25 Intake & Output 09/19/16 09/20/16 09/20/16 18:59 06:59 18:59 Intake Total 980 50 Balance 980 50 Weight 67.8 kg Intake: Intake, IV Titration 50 Amount Piperacillin-Tazobactam 3 50 .375 gm In Dextrose/Water 1 50ml.bag @ 12.5 mls/hr IVPB Q8HR [facility] Rx#: [id number] Oral 980 Other: Voiding Method Toilet Toilet # Voids 2 2 1 # Bowel Movements 0 - Exam Head exam was generally normal. There was no scleral icterus or corneal arcus. Mucous membranes were moist.Neck was supple and without jugular venous distension, thyromegaly, or carotid bruits. Carotids were easily palpable bilaterally. There was no adenopathy. Lung sounds are diminished in the lung apex on the left compared to the right. Sterile dressing is noted over the area where the chest tube was inserted on admission. There is scattered rhonchi and expiratory wheezes throughout the lung watkins bilaterally.Cardiac exam revealed the PMI to be normally situated and sized. The rhythm was regular and no extrasystoles were noted during several minutes of auscultation. The first and second heart sounds were normal and physiologic splitting of the second heart sound was noted. There were no murmurs, rubs, clicks, or gallops.Abdominal exam revealed normal bowel sounds. The abdomen was soft, non- tender, and without masses, organomegaly, or appreciable enlargement of the abdominal aorta.Examination of the extremities revealed easily palpable radial, femoral and pedal pulses. There was no cyanosis, clubbing or edema. - Labs CBC & Chem 7: 09/20/16 05:52 09/20/16 05:52 Labs: Abnormal Lab Results - Last 24 Hours (Table) 09/20/16 09/20/16 Range/Units 05:52 05:52 WBC 11.8 H (3.8-10.6) k/uL MCV 101.8 H (80.0-100.0) fL Neutrophils # 10.2 H (1.3-7.7) k/uL Lymphocytes # 0.8 L (1.0-4.8) k/uL Glucose 119 H (74-99) mg/dL Assessment and Plan Plan: 1 traumatic left-sided pneumothorax 15-20% involving the left apex, status post successful insertion of a thoravent, small minimal apical thorax remains. 2 left-sided chest wall pain, traumatic, rule out underlying pulmonary contusion , suspect left posterior fractured rib. 3 COPD exacerbation/symptoms of acute bronchitis 4 shortness of breath secondary to above 5 smoker 6 glaucoma 7 acute nosocomial pneumonia, based on the chest x-ray and CT of the chest, hence antibiotics were changed yesterday and she is presently on Levaquin and Zosyn. Recommendation: Continue present treatment plan including antibiotics, bronchodilators, incentive spirometry, mucolytic's, steroids, patient is now ready for discharge planning, chest x-ray was ordered to be done in a.m., and based on the chest x-ray findings further decisions and recommendations will be made. Again discussed the findings on the CT of the chest with the patient and her today. Time with Patient: Less than 30
[2016-09-20] MEDS: NICOTINE 21MG/24HR PATCH TRANSDERM SCH (17:40)
[2016-09-20] MEDS: LEVOFLOXACIN 750MG-D5W PMX 750 MG in DEXTROSE/WATER 1 150ML.BAG IVPB SCH (18:57)
[2016-09-20] MEDS: LATANOPROST 0.005% OPHTH DROPS 2.5 ML BTL BOTH EYES SCH (19:49)
[2016-09-21] MEDS: HYDROcodone/APAP 5-325MG 1 EACH TAB PO PRN ×6 (00:59→23:55)
[2016-09-21] MEDS: HYDROmorphone 1 MG/ML 1 ML SYRINGE IVP PRN ×7 (02:46→23:55)
[2016-09-21] MEDS: methylPREDNISolone SOD SUCCI 40 MG/ML 1 ML VIAL IV SCH ×4 (06:07→23:54)
[2016-09-21] MEDS: PANTOPRAZOLE 40 MG TABLET PO SCH (06:08)
--- NOTE | 2016-09-21 07:47 | PN ---
DATE OF SERVICE: 09/20/2016 This 51-year-old woman who was admitted with left-sided pneumothorax is being closely monitored. No chest pain or palpitation. No fever. The patient is on broad-spectrum IV antibiotics also. The possibility of pneumonia is being considered. On exam, alert and oriented x3. Pulse 79, blood pressure 117/82, respirations 18 , temperature 97.6, pulse ox 97% on 2 L. HEENT: Conjunctivae normal. NECK: No jugular venous distention. CARDIOVASCULAR: S1 and S2 muffled. RESPIRATORY: Breath sounds diminished at the bases. A few scattered rhonchi and crackles. ABDOMEN: Soft, nontender. LEGS: No edema, no swelling. NERVOUS SYSTEM: No focal deficits. LABS: WBC 11.8 and MCV 101.8. ASSESSMENT: 1. Fall and left-sided pneumothorax, status post Heimlich valve. 2. Possible bronchopneumonia. 3. Left-sided chest pain. 4. Multiple rib fractures on the left. 5. Chronic obstructive pulmonary disease. 6. Glaucoma. 7. Increased WBC. RECOMMENDATIONS AND DISCUSSION: Recommend to continue current medications, continue with symptomatic treatment. Otherwise, closely follow with Dr. Musa. Bronchodilators, Further recommendations to follow. SANDRO
[2016-09-21] MEDS: IPRATROPIUM-ALBUTEROL 3 ML NEB INHALATION SCH ×4 (08:32→20:22)
[2016-09-21] MEDS: ACETYLCYSTEINE 800 MG/4 ML VIAL INHALATION SCH ×3 (08:32→20:22)
[2016-09-21] MEDS: guaiFENesin-DM 600/30MG 1 EACH TAB.ER.12H PO SCH ×3 (09:04→20:09)
[2016-09-21] MEDS: TIMOLOL 0.5% OPHTH DROPS 5 ML BTL BOTH EYES SCH (09:04)
[2016-09-21] MEDS: HEPARIN SODIUM,PORCINE 5,000 UNIT/ML 1 ML VIAL SQ SCH ×2 (09:04→20:07)
[2016-09-21] MEDS: DOCUSATE 100 MG CAP PO SCH ×2 (09:04→20:07)
[2016-09-21] MEDS: POLYETHYLENE GLYCOL 3350 17 GM POWD.PACK PO SCH (09:04)
[2016-09-21] MEDS: PIPERACILLIN-TAZOBACTAM 3.375 GM in DEXTROSE/WATER 1 50ML.BAG IVPB SCH ×3 (09:04→23:54)
[2016-09-21] MEDS: ALPRAZolam 0.5 MG TAB PO PRN (09:04)
--- NOTE | 2016-09-21 09:20 | XR ---
EXAMINATION TYPE: XR chest 1V portable DATE OF EXAM: 09/21/2016 COMPARISON: Prior chest x-ray 09/19/2016 HISTORY: Pneumonia, status post chest tube removal TECHNIQUE: Single frontal view of the chest is obtained. FINDINGS: There is been interval removal of the patient's thoracic stent. Small apical pneumothorax is present. Minimal patchy basilar density is present. Ill-defined area of increased density present in the right upper lobe not seen on prior exam. IMPRESSION: Minimal apical pneumothorax status post chest tube removal. There may be residual atelec tasis or airspace disease. Abnormal density right upper lobe, follow-up is recommended.
[2016-09-21] MEDS: NICOTINE 21MG/24HR PATCH TRANSDERM SCH (17:05)
[2016-09-21] MEDS: LEVOFLOXACIN 750 MG TAB PO SCH (17:06)
--- NOTE | 2016-09-21 18:44 | PN ---
This patient is a 51-year-old female, status post traumatic left-sided pneumothorax. She had a Thoravent placed on the left side. Subsequent to that it was removed. The patient is doing reasonably well. She does have a history of pulmonary contusion and some left posterior rib fractures. More recently the patient has developed some nosocomial pneumonia. Doing okay. Feeling better today. She is on breathing treatments, incentive spirometer, and ( ) or Mucomyst was added to her breathing treatment. She does have a history of underlying COPD. She has a wet congested cough; cannot really bring up much phlegm. Currently her vital signs include temperature 98, heart rate 72, respiratory rate 16, blood pressure 121/72, mean 88. Two-liter saturation 94%. Appears in no acute distress. HEENT examination is grossly unremarkable. Mucous membranes are moist. NECK: Supple. Full range of motion. No adenopathy or thyromegaly. Neck veins are flat. Cardiovascular examination reveals regular rhythm and rate. S1 and S2 normal. No S3, S4 or murmur. Lungs reveal a few scattered coarse rhonchi. Breath sounds are diminished. She has a wet congested-sounding cough. ABDOMEN: Soft. Bowel sounds are heard. No masses or tenderness. Extremities are intact. No cyanosis, clubbing or edema. SKIN: No rash. Neurologic examination is brief but non-focal. No recent labs to review. Most recent chest x-ray is reviewed and compared to the x-ray done on September 19. Microbiology is pending or negative. Medications are reviewed. ASSESSMENT: 1. Traumatic left-sided pneumothorax, status post Thoravent insertion and subsequent removal. 2. Small residual apical pneumothorax. 3. Left-sided chest wall pain with pulmonary contusion and suspected left posterior rib fractures. 4. Chronic obstructive pulmonary disease secondary to chronic tobacco use. 5. History of chronic tobacco use. 6. Glaucoma. 7. Possible nosocomial pneumonia. PLAN: The patient seems to be doing better. She is on the appropriate medications, including antibiotics, bronchodilators, incentive spirometer, mucolytics, steroids. The patient may be discharged soon. No additional recommendations are made. I do not think she needs a bronchoscopy at this time. Will continue to follow. Prognosis is guarded. MTDD
[2016-09-21] MEDS: LATANOPROST 0.005% OPHTH DROPS 2.5 ML BTL BOTH EYES SCH (20:07)
[2016-09-22] MEDS: HYDROcodone/APAP 5-325MG 1 EACH TAB PO PRN ×6 (03:13→23:48)
[2016-09-22] MEDS: ALPRAZolam 0.5 MG TAB PO PRN ×2 (03:14→21:47)
--- NOTE | 2016-09-22 06:42 | PN ---
DATE OF SERVICE: 09/21/2016 This 51-year-old woman who was admitted after left sided pneumothorax also had bronchopneumonia in the outpatient complaining of severe pain. No chest pain or palpitation. No fever. Most recent chest x-ray is noted. On exam, alert and oriented x3. Pulse is 70, blood pressure 125/80, respirations 16, temperature normal, pulse ox 92% on room air. HEENT: Conjunctivae normal. NECK: No jugular venous distention. CARDIOVASCULAR: S1 and S2, muffled. RESPIRATORY: Breath sounds diminished at the bases. A few scattered rhonchi and crackles bilaterally. ABDOMEN: Soft, nontender. No mass palpable. LEGS: No edema. NERVOUS SYSTEM: No focal deficits. LABS: WBC 11.8. Glucose 119. ASSESSMENT: 1. Fall and left-sided pneumothorax, status post Heimlich valve. 2. Possible bronchopneumonia on the left side. 3. Left-sided chest pain. 4. Multiple rib fractures on the left. 5. Chronic obstructive pulmonary disease. 6. Glaucoma. 7. Increased WBC. RECOMMENDATIONS AND DISCUSSION: Recommend to continue current medications. Continue monitoring and symptomatic treatment. Continue with bronchodilators. Continue with antibiotics. Otherwise continue to monitor. Continue with pain medications. Further recommendations to follow. MTDD
[2016-09-22] MEDS: PANTOPRAZOLE 40 MG TABLET PO SCH (06:56)
[2016-09-22] MEDS: methylPREDNISolone SOD SUCCI 40 MG/ML 1 ML VIAL IV SCH ×4 (06:56→23:48)
[2016-09-22] MEDS: ACETYLCYSTEINE 800 MG/4 ML VIAL INHALATION SCH ×3 (08:38→21:14)
[2016-09-22] MEDS: IPRATROPIUM-ALBUTEROL 3 ML NEB INHALATION SCH ×4 (08:39→21:14)
[2016-09-22] MEDS: POLYETHYLENE GLYCOL 3350 17 GM POWD.PACK PO SCH (10:18)
[2016-09-22] MEDS: HEPARIN SODIUM,PORCINE 5,000 UNIT/ML 1 ML VIAL SQ SCH ×2 (10:18→21:47)
[2016-09-22] MEDS: BISACODYL 10 MG SUPP RECTAL SCH (10:18)
[2016-09-22] MEDS: PIPERACILLIN-TAZOBACTAM 3.375 GM in DEXTROSE/WATER 1 50ML.BAG IVPB SCH ×3 (10:18→23:47)
[2016-09-22] MEDS: guaiFENesin-DM 600/30MG 1 EACH TAB.ER.12H PO SCH ×2 (10:19→22:25)
[2016-09-22] MEDS: DOCUSATE 100 MG CAP PO SCH ×2 (10:19→22:25)
[2016-09-22] MEDS: TIMOLOL 0.5% OPHTH DROPS 5 ML BTL BOTH EYES SCH (10:19)
--- NOTE | 2016-09-22 14:31 | PN ---
51-year-old female with traumatic left sided pneumothorax and left sided posterior rib fractures. She had a Thoravent placed and then it was subsequently removed. She still had a very small apical pneumothorax on the left. She has improved clinically. She is about 90% better. She could be discharged home today. I told her that she needs pain medication to help her take deep breaths, cough, and clear secretions. She should go home on the incentive spirometry. She will need a short course of antibiotics as well. Narcotics are causing constipation and bloating. Current vital signs are stable. Temperature 97. Heart rate 80. Respiratory rate 16. Blood pressure 133/91. Mean 105. 2 L saturation 97%. Needs room air saturation to be checked. Appears in no acute distress. Clinically looks well. HEENT examination is grossly unremarkable. Mucous membranes are moist. Neck is supple. Cardiovascular examination reveals a regular rhythm and rate, S1, S2 normal. There is no S3, S4 or murmur. Lungs are relatively clear. A few scattered mild rhonchi. No wheezes. No crackles. Abdomen is soft. Bowel sounds are heard. Extremities are intact. No cyanosis, clubbing or edema. Skin without rash. Brief neurological examination is nonfocal. I looked at the Thoravent site yesterday in the left anterior chest area and it looked fine. Labs are reviewed. Nothing new to report. No new x-rays to report. Medications reviewed. ASSESSMENT: 1. Traumatic left sided pneumothorax, status post Thoravent insertion and subsequent removal. 2. Small residual apical pneumothorax. 3. Left sided chest wall pain with pulmonary contusion and left posterior rib fractures. 4. Chronic obstructive pulmonary disease secondary to chronic tobacco use. 5. History of chronic tobacco use. 6. History of glaucoma. 7. Possible nosocomial pneumonia. PLAN: The patient is doing well. Could be discharged home today. No additional recommendations are made. Possible discharge today or tomorrow. We will continue to follow. Prognosis is guarded. She is to go home on a small amount of oral narcotics and incentive spirometer. She could be discharged home on some antibiotics for a short period of time. She will need follow-up x- ray in our office. SANDRO
[2016-09-22] MEDS: NICOTINE 21MG/24HR PATCH TRANSDERM SCH (16:54)
[2016-09-22] MEDS: LEVOFLOXACIN 750 MG TAB PO SCH (16:55)
[2016-09-22] MEDS: LATANOPROST 0.005% OPHTH DROPS 2.5 ML BTL BOTH EYES SCH (22:25)
[2016-09-22 23:50] VITALS: RESP 16
[2016-09-23] MEDS: HYDROmorphone 1 MG/ML 1 ML SYRINGE IVP PRN ×2 (01:10→05:42)
[2016-09-23] MEDS: HYDROcodone/APAP 5-325MG 1 EACH TAB PO PRN ×3 (03:01→12:55)
[2016-09-23] MEDS: ALPRAZolam 0.5 MG TAB PO PRN (05:42)
[2016-09-23] MEDS: methylPREDNISolone SOD SUCCI 40 MG/ML 1 ML VIAL IV SCH ×2 (06:24→12:56)
[2016-09-23] MEDS: ACETYLCYSTEINE 800 MG/4 ML VIAL INHALATION SCH ×2 (08:08→11:25)
[2016-09-23] MEDS: IPRATROPIUM-ALBUTEROL 3 ML NEB INHALATION SCH ×2 (08:08→11:25)
[2016-09-23] MEDS: PANTOPRAZOLE 40 MG TABLET PO SCH (08:35)
[2016-09-23] MEDS: DOCUSATE 100 MG CAP PO SCH (08:36)
[2016-09-23] MEDS: guaiFENesin-DM 600/30MG 1 EACH TAB.ER.12H PO SCH (08:36)
[2016-09-23 08:37] VITALS: BP 128/76; TEMP 97.9
[2016-09-23] MEDS: HEPARIN SODIUM,PORCINE 5,000 UNIT/ML 1 ML VIAL SQ SCH (08:37)
[2016-09-23] MEDS: POLYETHYLENE GLYCOL 3350 17 GM POWD.PACK PO SCH (08:37)
[2016-09-23] MEDS: TIMOLOL 0.5% OPHTH DROPS 5 ML BTL BOTH EYES SCH (08:38)
[2016-09-23] MEDS: BISACODYL 10 MG SUPP RECTAL SCH (08:49)
[2016-09-23] MEDS: PIPERACILLIN-TAZOBACTAM 3.375 GM in DEXTROSE/WATER 1 50ML.BAG IVPB SCH (09:16)
--- NOTE | 2016-09-23 10:12 | P.PN ---
Subjective Progress note dated 09-23-16 This is a 51-year-old female with history of traumatic left-sided pneumothorax, status post Thoravent insertion and subsequent removal. The patient is doing relatively well. Her left-sided chest pain primarily relates a pulmonary contusion and posterior rib fractures. She also has a history of chronic tobacco use and possible underlying COPD as well as history of glaucoma and nosocomial pneumonia. Patient seemed be doing relatively well. From my perspective could be discharged. Objective - Vital Signs Vital signs: Vital Signs Temp 97.9 F 09/23/16 07:00 Pulse 80 09/23/16 08:22 Resp 16 09/23/16 07:00 BP 128/76 09/23/16 07:00 Pulse Ox 91 L 09/23/16 07:00 Intake & Output 09/22/16 09/23/16 09/23/16 18:59 06:59 18:59 Intake Total 100 1020 Balance 100 1020 Weight 66.7 kg Intake: Intake, IV Titration 100 50 Amount Piperacillin-Tazobactam 3 100 50 .375 gm In Dextrose/Water 1 50ml.bag @ 12.5 mls/hr IVPB Q8HR [facility] Rx#: [id number] Oral 970 Other: Voiding Method Toilet Toilet # Voids 3 1 # Bowel Movements 1 - Exam No acute distress, oriented 3. HEENT examination is grossly unremarkable. Mucous membranes are moist. No oral lesions. Neck supple. Full range of motion. No adenopathy or thyromegaly. Cardio vascular examination reveals regular rhythm rate. S1-S2 normal. No S3- S4. No distinct murmur noted. Lungs reveal a few scattered rhonchi. No wheezes or crackles. Breath sounds equal. Abdomen soft bowel sounds are heard. Extremities are intact. No cyanosis clubbing or edema. Skin without rash. Neurologic examination is prepared nonfocal. - Labs CBC & Chem 7: 09/20/16 05:52 09/20/16 05:52 Assessment and Plan (1) Rib fractures Status: Acute (2) COPD (chronic obstructive pulmonary disease) Status: Acute (3) Acute pneumothorax Status: Acute (4) Contusion of rib on left side Status: Acute (5) Fall Status: Acute Plan: Plan dated 09-23-16 The patient could be discharged home. She is doing well. She needs pain medication. She'll also need a short course of antibiotics and an incentive spirometer. We counseled her about the importance of smoking cessation. She' ll be seen in the office on Wednesday by Dr. Calhoun. At that time she'll have a follow-up chest x-ray. Time with Patient: Less than 30
--- NOTE | 2016-09-23 10:30 | PN ---
DATE OF SERVICE: 09/22/16 This 51 -year-old woman who was admitted with fall and left sided pneumonia, also had Heimlich valve. The patient improving significantly. No chest pain. No palpitations. No fever. PHYSICAL EXAMINATION: The patient is alert and oriented times three. Pulse 86. Blood pressure 120/74. Respiratory rate 12. Temperature 96.7. Pulse ox 93% on room air. HEENT: Conjunctivae normal. NECK: No JVD. CARDIOVASCULAR: S1, S2 muffled. RESPIRATORY: Breath sounds diminished at the bases. A few scattered rhonchi and crackles. Abdomen is soft, nontender. LEGS: No edema. No swelling. NERVOUS SYSTEM: No focal deficits. LABS: WBC 11.8, hemoglobin 12.9. ASSESSMENT: 1. Fall and left sided pneumothorax, status post Heimlich valve. 2. Possible bronchopneumonia on the left side. 3. Left sided chest pain. 4. Multiple fractures in the left ribs. 5. Chronic obstructive pulmonary disease. 6. Glaucoma. 7. Increased WBC. RECOMMENDATIONS AND DISCUSSION: Recommend to continue current medications. Continue with monitoring. Symptomatic treatment. Guarded prognosis because of multiple medical issues. Further recommendations to follow. MTDD
[2016-09-23 11:44] VITALS: PULSE 74
== END 2016-09-23 15:17 | disposition home or self-care (01) | DRG 199 ==
LOC: EC 13:53 → 6SEL 16:28 → 5MS5E 09-22 18:57 → 5ONC 09-22 19:12
PROVIDERS: ADMIT Internal Medicine; ATTEND Internal Medicine
PROC: 0W9B30Z Drainage of Left Pleural Cavity with Drainage Device, Percutaneous Approach (ICD-10-PCS; principal; 2016-09-16)
DX: S27.0XXA Traumatic pneumothorax, initial encounter (principal); J18.0 Bronchopneumonia, unspecified organism; S27.329A Contusion of lung, unspecified, initial encounter; J44.0 Chronic obstructive pulmonary disease with (acute) lower respiratory infection; J44.1 Chronic obstructive pulmonary disease with (acute) exacerbation; S22.42XA Multiple fractures of ribs, left side, initial encounter for closed fracture; Y95 Nosocomial condition; F17.210 Nicotine dependence, cigarettes, uncomplicated; K59.03 Drug induced constipation; T40.605A Adverse effect of unspecified narcotics, initial encounter; H40.9 Unspecified glaucoma; Z79.899 Other long term (current) drug therapy; W18.30XA Fall on same level, unspecified, initial encounter; Z98.82 Breast implant status; Z88.8 Allergy status to other drugs, medicaments and biological substances; Y92.008 Other place in unspecified non-institutional (private) residence as the place of occurrence of the external cause
CPT/HCPCS: 32551; 36415; 71010; 71260; 80048; 80053; 85025; 94640; 94760; 96374; 96375; 96376; 99285

== ENCOUNTER → 2016-09-24 | Outpatient (CLI) | payer MEDICAID ==
[2016-09-24 13:02] LABS: Basophils # (A) 0.1 k/uL (0-0.2); Basophils % (A) 1 %; CH 32.5; CHCM 32.2; Eosinophils # (A) 0.2 k/uL (0-0.7); Eosinophils % (A) 2 %; HCT 44.9 % (34.0-46.0); HDW 2.11; HGB 14.7 gm/dL (11.4-16.0); Luc # (Auto) 0.14; Luc % (Auto) 1; Lymphocytes # (A) 2.6 k/uL (1.0-4.8); Lymphocytes % (A) 26 %; MCH 33.2 pg (25.0-35.0); MCHC 32.7 g/dL (31.0-37.0); MCV 101.5 fL (80.0-100.0); Macrocytosis Slight; Mean Platelet Volume 6.7; Monocytes # (A) 0.7 k/uL (0-1.0); Monocytes % (A) 7 %; Neutrophils # (A) 6.3 k/uL (1.3-7.7); Neutrophils % (A) 63 %; RBC 4.43 m/uL (3.80-5.40); RDW 12.9 % (11.5-15.5); WBC (Perox) 10.12
[2016-09-24 13:16] LABS: Anion Gap 6 mmol/L; Blood Urea Nitrogen 23 mg/dL (7-17); Calcium 9.1 mg/dL (8.4-10.2); Carbon Dioxide 31 mmol/L (22-30); Chloride 100 mmol/L (98-107); Glucose 87 mg/dL (74-99); Non-African American GFR(MDRD) >60 (>60 ml/min/1.73 sqM); Potassium 4.5 mmol/L (3.5-5.1); Sodium 137 mmol/L (137-145)
== END | disposition home or self-care (01) ==
LOC: LABWHC1 12:43
PROVIDERS: ATTEND Hospitalist
DX: D72.829 Elevated white blood cell count, unspecified (principal)
CPT/HCPCS: 36415; 80048; 85025

== ENCOUNTER → 2017-02-26 | Outpatient (CLI) | payer MEDICAID ==
--- NOTE | 2017-03-02 10:21 | MM ---
Reason for exam: screening (asymptomatic). Last mammogram was performed 1 year and 4 months ago. History: Retro-pectoral saline implants in both breasts, February 1996. Physical Findings: Nurse did not find any significant physical abnormalities on exam. MG 3D Screen Mammo Imp/Cad Bilateral CC, MLO, and ID view(s) were taken. Prior study comparison: October 25, 2015, bilateral MG 3d screen mammo imp/cad. March 08, 2008, bilateral diagnostic digital mammog. The breast tissue is extremely dense which could obscure a lesion on mammography. No significant changes when compared with prior studies. ASSESSMENT: Benign, BI-RAD 2 RECOMMENDATION: Routine screening mammogram of both breasts in 1 year.
== END | disposition home or self-care (01) ==
LOC: RADMAMWWP 07:38
PROVIDERS: ATTEND Obstetrics & Gynecology
DX: Z12.31 Encounter for screening mammogram for malignant neoplasm of breast (principal)
CPT/HCPCS: 77063; 77067

== ENCOUNTER → 2018-05-06 | Outpatient (CLI) | payer MEDICAID ==
--- NOTE | 2018-05-09 11:10 | MM ---
Reason for exam: screening (asymptomatic). Last mammogram was performed 1 year and 2 months ago. History: Patient is postmenopausal. Retro-pectoral saline implants in both breasts, February 1996. Physical Findings: A clinical breast exam by your physician is recommended on an annual basis and results should be correlated with mammographic findings. MG 3D Screen Mammo Imp/Cad Bilateral CC, MLO, and ID view(s) were taken. Prior study comparison: February 26, 2017, bilateral MG 3d screen mammo imp/cad. October 25, 2015, bilateral MG 3d screen mammo imp/cad. The breast tissue is extremely dense which could obscure a lesion on mammography. Bilateral retropectoral saline implants. Left lateral anterior depth asymmetry. ASSESSMENT: Incomplete: need additional imaging evaluation, BI-RAD 0 RECOMMENDATION: Special view mammogram of the left breast. If lesion persists on supplemental views, image directed ultrasound is recommended. [facility] will attempt to contact patient to return for supplemental views and ultrasound if indicated.
== END | disposition home or self-care (01) ==
LOC: RADMAMWWP 07:22
PROVIDERS: ATTEND Internal Medicine Critical Care Medicine
DX: Z12.31 Encounter for screening mammogram for malignant neoplasm of breast (principal); Z98.82 Breast implant status
CPT/HCPCS: 77063; 77067

== ENCOUNTER → 2018-05-17 | Outpatient (CLI) | payer MEDICAID ==
--- NOTE | 2018-05-17 10:57 | MM ---
Reason for exam: additional evaluation requested from abnormal screening. Last mammogram was performed less than 1 month ago. History: Patient is postmenopausal. Retro-pectoral saline implants in both breasts, February 1996. Took hormonal contraceptives beginning at age 15. Physical Findings: Nurse did not find any significant physical abnormalities on exam. MG 3D Work Up W/Cad LT CC and MLO view(s) were taken of the left breast. Prior study comparison: May 06, 2018, bilateral MG 3d screen mammo imp/cad. February 26, 2017, bilateral MG 3d screen mammo imp/cad. The breast tissue is heterogeneously dense. This may lower the sensitivity of mammography. The previously seen abnormality resolves on additional views and appears as fibroglandular tissue compatible with summation. No suspicious abnormality. Precautionary ultrasound. These results were verbally communicated with the patient and result sheet given to the patient on 05/17/18. ASSESSMENT: Incomplete: need additional imaging evaluation, BI-RAD 0 RECOMMENDATION: Ultrasound of the left breast. (lower outer quadrant retroareolar)
--- NOTE | 2018-05-17 10:59 | USB ---
Reason for exam: additional evaluation requested from abnormal screening. History: Patient is postmenopausal. Retro-pectoral saline implants in both breasts, February 1996. Took hormonal contraceptives beginning at age 15. US Breast Workup Limited LT Left limited breast ultrasound including focal area of concern, retroareolar and axilla demonstrates no cystic or solid lesion seen. Dense tissue corresponds to the mammographic abnormality. These results were verbally communicated with the patient and result sheet given to the patient on 05/17/18. ASSESSMENT: Negative, BI-RAD 1 RECOMMENDATION: Return to routine screening mammogram schedule for both breasts.
== END | disposition home or self-care (01) ==
LOC: RADMAMWWP 08:50
PROVIDERS: ATTEND Internal Medicine Critical Care Medicine
DX: R92.8 Other abnormal and inconclusive findings on diagnostic imaging of breast (principal)
CPT/HCPCS: 77061; 77065

== ENCOUNTER → 2019-04-13 | Day surgery (SDC) | payer MEDICAID ==
[~2019-04-13] MED LIST: ALBUTEROL NEBULIZED 2.5 MG/3 ML INHALATION ONE; ATROPINE SULFATE 0.4 MG/ML 20 ML VIAL IM ONE; IV FLUID CONTINUATION 450 ML IV ONE; LACTATED RINGERS 1,000 ML IV ONE; LIDOCAINE 1% INJ 10MG/ML (20 ML MDV) ONE; LIDOCAINE 2% (PF) 20 MG/ML 5 ML VIAL INHALATION ONE; LIDOCAINE 2% INJ 20 MG/ML INTRATRACH ONE; LIDOCAINE VISCOUS 2000 MG/100 ML BOTTLE MUCOUS MEM ONE; PROPOFOL 10 MG/ML 20 ML VIAL IV ONE
[2019-04-13 15:32] VITALS: BMI 23.7
[2019-04-13 15:44] VITALS: TEMP 97.6
[2019-04-13 16:14] VITALS: RESP 20
[2019-04-13 16:44] VITALS: BP 133/76; PULSE 101
[2019-04-13 20:50] LABS: Appearance,BF Hazy; Color,BF Colorless
[2019-04-13 21:16] LABS: Nucleated Cells, Body Fluid 210 /uL; RBC, Body Fluid 0 /uL
[2019-04-13 21:19] LABS: Mononuclear WBC,Body Fluid 2 %; Polynuclear WBC,Body Fluid 98 %; Total Cells Counted,Body Fluid 100
--- NOTE | 2019-04-14 06:25 | PCN ---
PROCEDURE NOTE PROCEDURE: Bronchoscopy, airway examination, therapeutic lavage, BAL. PREOPERATIVE DIAGNOSIS: Chronic bronchitis and retained secretions. POSTOPERATIVE DIAGNOSIS: Chronic bronchitis and retained secretions. There was informed consent and universal timeout. INTERVENTIONAL PAIN PHYSICIAN provided general anesthesia. The patient's procedure was done in room #1. BILINGUAL MEDICAL RECEPTIONIST: Dr. Rjoo. DESCRIPTION OF PROCEDURE: After the patient was adequately sedated and being fully monitored, the bronchoscope was inserted through the right nostril. It passed through the right nasopharynx into the oropharynx. Passed then into the hypopharynx. The hypopharyngeal structures including anterior commissure, true cords, false cords, arytenoids, piriform sinuses, valleculae and epiglottis all appeared normal. The glottic structures were topicalized. The bronchoscope was pushed through the glottic opening into the trachea. The trachea appeared relatively normal although there were secretions noted within the trachea. They were suctioned. They were purulent looking. Tracheal reji was sharp. The right and left mainstem were topicalized. The right upper lobe and its 3 segments, right middle lobe and its 2 segments right lower lobe and its 5 segments, the left upper lobe and its 2 segments, the lingula and its 2 segments and the left lower lobe and its 4 segments all have similar findings of diffuse airway erythema and hyperemia. There was moderate bronchitis throughout. Of note, there was no dominant mass or tumor. The mucosa was friable and bled easily. There was vascular engorgement. There were thick secretions noted throughout. They were suctioned. The bronchoscope was then wedged into the right middle lobe, 30 mL of cloudy fluid was returned. Next, additional saline was used to cleanse the rest of the airways. Once done, the bronchoscope was withdrawn. There was no immediate complication. The fluid will be sent for analysis. The patient tolerated the procedure well and will be recovered. MMODL / IJN: [id number] / SANDRO
== END ==
LOC: ORWHC2ENDO 14:46
PROVIDERS: ATTEND Internal Medicine Critical Care Medicine
DX: J44.9 Chronic obstructive pulmonary disease, unspecified (principal); H40.9 Unspecified glaucoma; Z88.1 Allergy status to other antibiotic agents; Z79.2 Long term (current) use of antibiotics; Z87.09 Personal history of other diseases of the respiratory system; Z87.81 Personal history of (healed) traumatic fracture; F17.200 Nicotine dependence, unspecified, uncomplicated; Z79.899 Other long term (current) drug therapy; Z79.1 Long term (current) use of non-steroidal anti-inflammatories (NSAID); Z79.891 Long term (current) use of opiate analgesic; Z98.82 Breast implant status; Z82.5 Family history of asthma and other chronic lower respiratory diseases; Z82.49 Family history of ischemic heart disease and other diseases of the circulatory system; Z83.79 Family history of other diseases of the digestive system
CPT/HCPCS: 94667; 89050; 87252; 87070; 87205; 87116; 87102; 87206; 31624; J2001 ×2; J0461; J2704; 87496; 87498; 87502; 87529; 87634; 87798; 88108; 88305

== ENCOUNTER → 2019-11-08 | Outpatient (CLI) | payer MEDICAID ==
--- NOTE | 2019-11-09 22:29 | CTL ---
EXAMINATION TYPE: CT Low Dose Lung DATE OF EXAM ORDERED: 11/08/2019 HISTORY: Personal tobacco use. Lung cancer screening CT DLP: 104.[address] CTDI: 2.9 mGy Automated exposure control for dose reduction was used. SCREENING VISIT: Initial COMPARISON: 09/18/2016 TECHNIQUE: Low dose computed tomography scan was performed through the chest at 1 mm thick sections a nd reconstructed images in the coronal plane at [address] DIAGNOSTIC QUALITY: Satisfactory FINDINGS: LUNG NODULES: Present, detailed below: There is a 0.4 cm peripheral right apical nodule. Series 4 image 44. There is a 0.4 cm calcified nodule within the periphery of the right upper lung field. Series 4 image 48. There are 0.2 cm nodules in the periphery of the right upper lobe. Images 55-56. There is a 0.4 cm peripheral left medial calcified nodule. Series 4 image 66. There is some pleural thickening along the lateral right upper lung field measuring 0.8 cm approximat lolis 0.3 cm in depth. Series 4 image 72. Couple of punctate peripheral densities are in the anterior right lung, series 4 image 99. Multiple calcified granuloma are present. This would include series 4 image 71 2 left lung nodules, s eries 4 image 66 left lung, series 4 image 48 right upper lobe, series 4 image 74 medial left lung, a nd medial right lung, 2 nodules left midlung series 4 image 80, medial right midlung series 4 image 8 9, series 4 image 95 mediastinal border and anterior border. Couple of peripheral calcifications in t he anterior right middle lobea series 4 image 103. A posterior right lung nodules also present. Poste rior nodules are in the left lung and right lung series 4 image 124 couple of calcifications are with in the right middle lobe series 4 image 135. Peripheral calcifications posterior right lung same leve l. 2 punctate lingular peripheral calcifications are present series 4 image 135. Posterior left lung base nodules are present posterior lateral left right lung nodule series 4 image 142. Additional extensive peripheral calcifications extend through the lung bases. LUNGS: COPD: Severity: None Fibrosis: Severity: Lymph nodes: No enlarged lymphadenopathy Other findings: None RIGHT PLEURAL SPACE: Effusion: None Calcification: None Thickening: None Pneumothorax: None LEFT PLEURAL SPACE: Effusion: None Calcification: None Thickening: None Pneumothorax: None HEART: Heart Size: Normal Coronary calcification: Mild Pericardial effusion: None OTHER FINDINGS: Upper abdomen: Normal Bony thorax: Normal Supraclavicular region: Normal Other: Ascending thoracic aorta at the level the main pulmonary artery measures 3.5 cm. The main pul monary artery at the bifurcation measures 2.4 cm. IMPRESSION: Probably benign findings. Suspected multiple calcified tiny granuloma. FOLLOW UP CT CHEST RECOMMENDATION: Yes, standard CT chest [address] LUNG RAD: 3
== END | disposition home or self-care (01) ==
LOC: RADCTMAIN 16:29
PROVIDERS: ATTEND Internal Medicine Critical Care Medicine
DX: Z12.2 Encounter for screening for malignant neoplasm of respiratory organs (principal); F17.210 Nicotine dependence, cigarettes, uncomplicated

== ENCOUNTER 2021-03-05 10:08 | Day surgery (SDC) | payer MEDICAID ==
[2021-03-04 09:39] VITALS: BMI 24.1
--- NOTE | 2021-03-04 10:27 | P.HPOR ---
History of Present Illness H&P Date: 03/04/21 Chief Complaint: Left distal radius fracture Subjective: This is a 55 year old female that presents today for initial evaluation regarding a left wrist injury that occurred on 03/02/21. She states she slipped outside on ice at her home and landed onto an outstretched hand. She figured she sprained her wrist but sought additional treatment today due to the amount of bruising, swelling and pain. 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 She currently is in a removable wrist splint. She denies any paresthesias and denies any other areas of pain and denies any prior injury to this wrist in the past. Physical Examination: LUE: AIN/PIN/Radial/Ulnar/Median motor intact. Radial/Ulnar/Median SILT. 2+/4 Radial/Ulnar pulses palpated. 5/5 APB, 5/5 FDI. Wrist ROM limited due to pain/swelling. Imaging: X-Rays of the left wrist demonstrate a displaced intra-articular distal radius fracture with 40 degrees of dorsal angulation with loss of radial height. Impression: 1.) Left intra-articular distal radius fracture, displaced. Plan: Diagnosis and treatment options were discussed with the patient. Due to the amount of displacement and angulation seen on today's imaging I recommend surgical intervention with ORIF. Risks and benefit of surgery including bleeding, infection, damage to surrounding tissue, need for further surgery, hardware irritation, possible need for removal of hardware were discussed and the patient wished to go forward with surgery. Rings were removed in office today and she is advised to rest, ice and elevate the left upper extremity. She was placed back into her removable left wrist splint. She will be in a post operative splint for 10-14 days after surgery and we will then transition her to a removable wrist splint after. She may use the the left hand in the splint for writing but nothing heavier than a pen or pencil for the first 2 weeks after surgery. She wishes to get back to work as soon as possible, as long as there is no lifting with the left hand she may return to work as soon as desired with the splint intact. All questions answered, we will schedule surgery in the near future and pre-op labs, EKG are ordered. -Roddy Saeed DO Orthopedic Hand/Upper Extremity Surgeon Past Medical History Past Medical History: COPD, Osteoarthritis (OA) Additional Past Medical History / Comment(s): glaucoma, FRACTURE OF LEFT WRIST History of Any Multi-Drug Resistant Organisms: None Reported Past Surgical History: No Surgical Hx Reported, Uterine Ablation Additional Past Surgical History / Comment(s): Cosmetic bilateral breast implants,BRONCHOSCOPY Past Anesthesia/Blood Transfusion Reactions: No Reported Reaction Smoking Status: Current every day smoker - Past Family History Mother Family Medical History: No Reported History Medications and Allergies Home Medications Medication Instructions Recorded Confirmed Type Latanoprost Ophth [Xalatan 0.005%] 1 drops BOTH EYES HS 09/16/16 03/04/21 History Timolol 0.5% Ophth Soln [Timoptic 1 drop BOTH EYES DAILY 09/16/16 03/04/21 History 0.5% Ophth Soln] ALPRAZolam [Xanax] 0.5 mg PO TID PRN #40 tab 09/23/16 03/04/21 Rx Ibuprofen [Motrin] 200 mg PO Q8HR PRN #1 tab 09/23/16 03/04/21 Rx Acetaminophen [Tylenol Arthritis] 650 mg PO Q6H PRN 03/04/21 03/04/21 History Azithromycin [Zithromax] 250 mg PO DAILY 03/04/21 03/04/21 History Ipratropium-Albuterol Nebulize 3 ml INHALATION RT-QID PRN 03/04/21 03/04/21 History [Duoneb 0.5 mg-3 mg/3 ml Soln] guaiFENesin-DM 600/30MG [Mucinex 1 each PO Q12HR PRN 03/04/21 03/04/21 History Dm] predniSONE 30 mg PO DAILY 03/04/21 03/04/21 History Allergies Allergy/AdvReac Type Severity Reaction Status Date / Time metronidazole [From Flagyl] Allergy Rash/Hives Verified 03/04/21 08:59 Physical Examination Osteopathic Statement: *. No significant issues noted on an osteopathic structural exam other than those noted in the History and Physical/Consult.
[~2021-03-05 10:08] MED LIST changes: -ALBUTEROL NEBULIZED 2.5 MG/3 ML INHALATION ONE; -ATROPINE SULFATE 0.4 MG/ML 20 ML VIAL IM ONE; -IV FLUID CONTINUATION 450 ML IV ONE; -LACTATED RINGERS 1,000 ML IV ONE; +LIDOCAINE 1% (10MG/ML) FOR IV START INTRADERMA PRN; -LIDOCAINE 1% INJ 10MG/ML (20 ML MDV) ONE; -LIDOCAINE 2% (PF) 20 MG/ML 5 ML VIAL INHALATION ONE; -LIDOCAINE 2% INJ 20 MG/ML INTRATRACH ONE; -LIDOCAINE VISCOUS 2000 MG/100 ML BOTTLE MUCOUS MEM ONE; -PROPOFOL 10 MG/ML 20 ML VIAL IV ONE; +fentaNYL (PF) 50 MCG/ML 2 ML AMP IV PRN
[2021-03-05] MEDS: LACTATED RINGERS 1,000 ML IV SCH ×2 (10:24→10:47)
[2021-03-05] MEDS: ONDANSETRON 4 MG/2 ML VIAL IVP ONE ×2 (10:24→10:47)
[2021-03-05 10:39] VITALS: RESP 16
[2021-03-05 10:47] LABS: Glucose,Whole Blood 97 mg/dL (75-99)
[2021-03-05] MEDS ORDERED: DEXAMETHASONE SOD PHOSPHATE 4 MG/ML 1 ML VIAL IVP ONE (10:48)
[2021-03-05] MEDS ORDERED: MIDAZOLAM 2 MG/2 ML VIAL IVP ONE (10:56)
[2021-03-05] MEDS ORDERED: DEXAMETHASONE SOD PHOSPHATE 4 MG/ML 1 ML VIAL ONE (11:10)
[2021-03-05] MEDS ORDERED: ROPIVACAINE 5 MG/ML 30 ML VIAL ONE (11:10)
[2021-03-05] MEDS ORDERED: LIDOCAINE 1% INJ 10MG/ML (20 ML MDV) ONE (11:10)
[2021-03-05] MEDS ORDERED: ePHEDrine 50 MG/ML 1 ML AMP ONE (11:10)
[2021-03-05] MEDS ORDERED: PROPOFOL 10 MG/ML 20 ML VIAL IV ONE (11:10)
[2021-03-05] MEDS ORDERED: fentaNYL (PF) 50 MCG/ML 2 ML AMP ONE (11:10)
--- NOTE | 2021-03-05 11:58 | P.ANPRN ---
Procedure Note - Anesthesia - Nerve Block Performed Left Axillary Single Time Out Performed: Yes Date of Procedure: 03/05/21 Procedure Start Time: 10:55 Procedure Stop Time: 11:07 Location of Patient: PreOp Indication: Acute Post-Operative Pain, Requested by Surgeon Sedation Type: Sedate with meaningful contact maintained Preparation: Sterile Prep, Sterile Dressing Position: Supine Catheter: None Needle Types: Pajunk Needle Gauge: 20, 21 Ultrasound used to visualize needle placement: Yes Ultrasound used to observe medication spread: Yes Injectate: 0.5% Ropivacaine (see comment for volume) (30 ml + decadron 4 mg) Blood Aspirated: No Pain Paresthesia on Injection Noted: No Resistance on Injection: Normal Image Stored and Saved: Yes Events: Uneventful and Well Tolerated
[2021-03-05 13:03] VITALS: TEMP 97.1
[2021-03-05 13:32] VITALS: PULSE 95
[2021-03-05 13:49] VITALS: BP 128/83
--- NOTE | 2021-03-05 19:42 | P.OP ---
Date of Procedure: 03/05/21 Preoperative Diagnosis: Left intra-articular distal radius fracture, displaced. Postoperative Diagnosis: Left intra-articular distal radius fracture, displaced. Procedure(s) Performed: 1.) Open reduction internal fixation of left distal radius fracture, 3 parts. Implants: Biomet DVR Distal Radius Cross Lock Volar Locking Plate, Narrow, Standard. Anesthesia: EMRE regional Surgeon: Roddy Saeed Minibus Driver #1: Lalo Newton Estimated Blood Loss (ml): 10 Pathology: none sent Condition: stable Disposition: PACU Description of Procedure: This is a 55 year old female who sustained a displaced intra-articular distal radius fracture and presents today for open reduction internal fixation of their left distal radius fracture . Risks and benefits of surgery were discussed with the patient including bleeding, damage to surrounding tissue, infection, need for further surgery as well as risks of anesthesia including pulmonary embolism and even and the patient wished to proceed with surgical intervention. The patients was seen in the pre-operative area by myself. Consent and H&P were completed and updated. The correct extremity was marked in the pre-operative area by myself and all other questions were answered. Operative Narrative: The patient was brought to the operating room by the department of anesthesia. They remained on the portable stretcher and a rolling hand table was brought to the side of the operative extremity. Pre-operative time out was performed indicating the correct patient, procedure and laterality. All in the room agreed. Pre-operative antibiotics were given prior to skin incision. The patient was then drifted off to sleep by the department of anesthesia. A nonsterile tourniquet was then applied to the operative extremity and the left upper extremity was then prepped and draped in normal sterile fashion. The operative extremity was the exsanguinated with an esmarch bandage and the tourniquet was inflated to 250mmHg. A longitudinal incision centered over the FCR tendon was made with a 15-blade scalpel. Blunt dissection was taken down to the FCR tendon sheath using Bovie cautery for meticulous hemostasis. The FCR sheath was opened with tenotomy scissors. The floor of the FCR sheath was then incised with a 15-blade scalpel and the FPL tendon and muscle belly was swept bluntly in an ulnar direction to reveal the pronator quadratus. Pronator quadratus was sharply incised with a 15-blade scalpel along the radial border of the distal radius, coming across transversely parallel to the joint at the level of the watershed line, radial artery was identified and protected. Periosteal elevator was then used to elevate the pronator quadratus off the distal radius from a radial to ulnar fashion. Fracture fragments were visualized which included an intra-articular fragment at the distal radial ulnar joint and a dorsal ulnar fragment best visualized on pre-op imaging. A [place] elevator was used to lever the distal piece back into place and free up the fractured fragments. A Narrow width standard length Norman/biomet crosslock DVR plate was chosen to fit the patients anatomy best. This was placed on the distal radius under direct visualization and the K- wire was placed in the shaft k-wire hole. The fracture was then reduced to the plate distally and a k-wire was placed in the ulnar most k-wire hole in the proximal row. Fluoroscopy was then utilized to confirm correct placement of plate in the radial/ulnar plane and distal k-wire placement was confirmed to be proximal to the subchondral bone on 20 degree elevated lateral view confirming extra-articular screw placement. Adventist of radial height, inclination and volar tilt was achieved. The oblong hole was drilled and filled with a cortical screw. The proximal row and radial styloid screw hole was then drilled and filled from ulnar to radial with locking screws. Distal row was then drilled and filled with locking smooth pegs. Attention was then brought to the proximal shaft screws. Proximal crosslocking shaft screws were drilled with a nonlocking screws. The wrist joint was the ranged and full smooth flexion/extension with no crepitus appreciated. Final imaging was taken confirming extra-articular placement of distal screws at DRUJ and radiocarpal joint. The wound was then irrigated. Subcutaneous closure was performed with 3-0 vicryl followed by skin closure with 4-0 nylon suture. Sterile dressing consisting of adaptic,, 4x4s, and a volar plaster splint was applied. Tourniquet was let down and the hand had immediate perfusion. The patient was then woken by the department of anesthesia and transferred to PACU in stable condition. The patient was then woken by the department of anesthesia and transferred to PACU in stable condition. Roddy Saeed D.O. Orthopedic Hand/Upper Extremity Surgeon
== END 2021-03-05 14:04 | disposition home or self-care (01) ==
LOC: OR 10:08
PROVIDERS: ATTEND Orthopaedic Surgery Hand Surgery
DX: S52.572A Other intraarticular fracture of lower end of left radius, initial encounter for closed fracture (principal)
CPT/HCPCS: 25609; 64417; 76942; C1713; J2250; J1100; J2405; J0690; J2001; J3010; J2795; J2704

== ENCOUNTER → 2021-10-28 | Outpatient (CLI) | payer MEDICAID ==
[2021-10-28 18:34] LABS: Basophils # (A) 0.06 X 10*3/uL (0.00-0.10); Basophils % (A) 0.7 %; Eosinophils # (A) 0.07 X 10*3/uL (0.04-0.35); Eosinophils % (A) 0.8 %; HCT 42.6 % (37.2-46.3); HGB 14.1 g/dL (12.0-15.0); Immature Grans, Automated 0.5 %; Lymphocytes # (A) 1.47 X 10*3/uL (0.90-5.00); Lymphocytes % (A) 17.7 %; MCH 32.4 pg (27.0-32.0); MCHC 33.1 g/dL (32.0-37.0); MCV 97.9 fL (80.0-97.0); Mean Platelet Volume 9.5 fL (9.5-12.2); Monocytes # (A) 0.59 X 10*3/uL (0.20-1.00); Monocytes % (A) 7.1 %; NRBC Per 100 WBC 0 /100 WBCS (0.0-0.0); Neutrophils # (A) 6.08 X 10*3/uL (1.80-7.70); Neutrophils % (A) 73.2 %; Platelet Count 249 X 10*3/uL (140-440); RBC 4.35 X 10*6/uL (4.10-5.20); RDW 13.1 % (11.5-14.5); WBC 8.31 X 10*3/uL (4.50-10.00)
[2021-10-28 18:49] LABS: ALT 24 U/L (8-44); AST 17 U/L (13-35); African American GFR (CKD) 97.2 (60.0-200.0); Albumin 4.8 g/dL (3.8-4.9); Albumin/Globulin Ratio 2.35 (1.60-3.17); Alkaline Phosphatase 63 U/L (41-126); Appearance,Urine Clear (Clear); BUN/Creat Ratio 15.05 Ratio (12.00-20.00); Bilirubin,Urine Negative (Negative); Blood Urea Nitrogen 11.8 mg/dL (9.0-27.0); Blood,Urine Negative (Negative); Calcium 9.8 mg/dL (8.7-10.3); Carbon Dioxide 26.4 mmol/L (20.0-27.5); Chloride 100 mmol/L (96-109); Chol/HDL Ratio 4.23 Ratio; Color,Urine Yellow (Yellow); Globulin 2.1 g/dL (1.6-3.3); Glucose 101 mg/dL (70-110); Ketones,Urine Negative (Negative); LDL Cholesterol,Calculated 183.1 mg/dL (0.0-131.0); Nitrite,Urine Negative (Negative); Non-African American GFR(CKD) 83.9 (60.0-200.0); PH, Urine 5.5 (5.0-8.0); Potassium 4.2 mmol/L (3.5-5.5); Sodium 136 mmol/L (135-145); Specific Gravity,Urine 1.011 (1.001-1.030); Total Protein 6.9 g/dL (6.2-8.2); Urobilinogen,Urine 0.2 (0.2,1.0)
== END | disposition home or self-care (01) ==
LOC: LABWHC1 10:29
PROVIDERS: ATTEND Internal Medicine Critical Care Medicine
DX: Z00.00 Encounter for general adult medical examination without abnormal findings (principal)
CPT/HCPCS: 36415; 80053; 80061; 81003; 82306; 83036; 84439; 84443; 85025

== ENCOUNTER → 2021-11-13 | Outpatient (CLI) | payer MEDICAID ==
--- NOTE | 2021-11-13 08:22 | CTL ---
EXAMINATION TYPE: CT Low Dose Lung DATE OF EXAM ORDERED: 11/13/2021 HISTORY: Lung cancer screening CT DLP: 94.[address] CTDI: 2.6 mGy Automated exposure control for dose reduction was used. SCREENING VISIT: Subsequent visit COMPARISON: 11/08/2019 and 09/18/2016 TECHNIQUE: Low dose computed tomography scan was performed through the chest at 1 mm thick sections a nd reconstructed images in multiple planes at 1 mm and [address] DIAGNOSTIC QUALITY: Satisfactory FINDINGS: LUNG NODULES: Scattered nodular densities are seen throughout the lungs most pronounced along the periphery in the posterior aspect of the lower lobes. Overall these have a similar appearance to prior examination fro 2019. Majority of these noncalcified pulmonary nodules are sub-6 mm and distal majority are calcifi ed granulomas. Given findings on 09/18/2016 some of these are likely postinfectious and/or granulomato us disease.. LUNGS: COPD: Severity: Mild Fibrosis: Severity: None Lymph nodes: None Other findings: Scattered calcified granulomas RIGHT PLEURAL SPACE: Effusion: None Calcification: None Thickening: None Pneumothorax: None LEFT PLEURAL SPACE: Effusion: None Calcification: None Thickening: None Pneumothorax: None HEART: Heart Size: Normal Coronary Calcification: minimal Pericardial Effusion: None OTHER FINDINGS: Upper abdomen: None Bony thorax: Mild multilevel disc degeneration changes.Posterior remote rib fractures noted on the le ft. Supraclavicular region: None Other: Bilateral breast implants which appear intact. There is some capsular calcifications bilateral ly. IMPRESSION: Scattered innumerable sub-6 mm pulmonary nodules. No suspicious pulmonary nodules at this time. CT LUNG RAD AND CT CHEST RECOMMENDATION: Lung-Rad 2 Benign Appearance or Behavior: Continue annual sc reening with LDCT in 12 months. S Modifier (other clinically significant findings): None
--- NOTE | 2021-11-14 07:12 | MM ---
Reason for Exam: Screening (asymptomatic). Last mammogram was performed 3 year(s) and 6 month(s) ago. Patient History: Menarche at age 11. First Full-Term at age 24. Postmenopausal. Hormonal Contraceptives, from age 15 until age 31. 02/1996, Bilateral Implants. Risk Values: Michelle 5 year model risk: 1.4%. NCI Lifetime model risk: 8.7%. Prior Study Comparison: 02/26/2017 Bilateral Screening Mammogram, [facility]. 05/06/2018 Bilateral Screening Mammogram, [facility]. 05/17/2018 Left Diagnostic Mammogram, [facility]. Tissue Density: The breast tissue is extremely dense which could obscure a lesion on mammography. Analyzed By CAD. Overall Assessment: Benign, BI-RAD 2 Management: Screening Mammogram of both breasts in 1 year. Electronically signed and approved by: Tien Morales D.O.
== END | disposition home or self-care (01) ==
LOC: RADCTMAIN 06:48
PROVIDERS: ATTEND Internal Medicine Critical Care Medicine
DX: Z12.31 Encounter for screening mammogram for malignant neoplasm of breast (principal); Z12.2 Encounter for screening for malignant neoplasm of respiratory organs; Z87.891 Personal history of nicotine dependence
CPT/HCPCS: 71271; 77063; 77067